=== PATIENT | female | born 1980 ===

== ENCOUNTER 2021-09-29 05:24 | Inpatient (IN) | payer OTHER, SELFPAY ==
--- NOTE | ~2021-09-29 | CT_ITS ---
EXAMINATION: CT ABDOMEN AND PELVIS WITH CONTRAST CLINICAL INFORMATION: Abdominal pain, rule out appendicitis. COMPARISON: None TECHNIQUE: Multidetector volumetric images were obtained from the superior aspect of the liver through the pubic symphysis following administration 85 mL of Omnipaque 350 intravenous contrast. Sagittal and coronal reformatted images were obtained on the technologist's workstation. Oral contrast: No This CT examination was performed using dose optimization techniques as appropriate, variously including the following: *Automated exposure control *Adjustment of mA and/or kV according to patient size (this includes techniques or standardized protocols for targeted exams where dose is matched to indication/reason for exam; i.e. extremities or head) *Use of iterative reconstruction technique DLP: 421 mGy-cm FINDINGS: LUNG BASES: The visualized lung bases are unremarkable. LIVER, GALLBLADDER, AND BILIARY TREE: Unremarkable. PANCREAS: Unremarkable. SPLEEN: Unremarkable. ADRENAL GLANDS: Unremarkable. KIDNEYS AND URETERS: The right kidney shows an interpolar cyst measuring 1.1 cm (image 35, series 3). Incidental persistent cortical lobulation. No nephrolithiasis or hydronephrosis. BLADDER: Unremarkable. GASTROINTESTINAL TRACT: The stomach, small bowel and appendix are unremarkable. The proximal colon is unremarkable. Mild mural thickening is seen in the sigmoid colon rectum without focal abnormality. ABDOMINAL WALL: No significant hernia is appreciated. LYMPH NODES: No lymphadenopathy. VASCULAR: Unremarkable. PELVIC VISCERA: Anteverted/anteflexed uterus with diminished attenuation and ill-defined margins in the inferior uterine body and cervix extending to the vaginal fornix. A tubular structure extends along the posterior margin of the uterus to the left ovary with mildly thickened wall measuring approximately 3.7 x 3.6 x 1.8 cm. The left ovary is enlarged with several low-attenuation components with thickened guerrero measuring approximately 4.7 x 3.6 x 2.9 cm (image 23, series 6; image 66, series 3). Similar findings are seen in the right ovary to a lesser extent. Mild surrounding infiltrative changes are seen. OSSEOUS STRUCTURES: L5-S1 is transitional with sacralization of L5 and rudimentary disc at L5-S1. Minimal grade 1 retrolisthesis of L4 over L5 is noted. CT/CT abdomen pelvis w con IMPRESSION: 1. Pelvic findings suggestive of left tubo-ovarian abscess. Similar findings are seen in the right ovary to a lesser extent. Additionally is decreased enhancement are ill-defined margins of the inferior uterine body/cervix/vaginal fornix suggestive of inflammation in this region as well. Malignancy would be less likely but cannot be excluded. The adjacent sigmoid colon and rectum show mild mural thickening which may be reactive. No diverticulosis or evidence for stress fistula formation. 2. Right renal cyst demonstrates benign features. This result was discussed with Dr. Nava at 11:05 AM on 09/29/2021 and it was ascertained that the content and urgency of the report was understood at the time of direct communication.
[2021-09-29 05:49] VITALS: BP 126/75; PULSE 99; RESP 16; TEMP 36.9; O2SAT 100; BMI 24.4
[2021-09-29 06:31] VITALS: BP 124/72; PULSE 94; RESP 18; O2SAT 99
--- NOTE | 2021-09-29 06:59 | ED_ITS ---
HPI - General Adult General Chief complaint: General Medical Stated complaint: lower back pain, migraine Time Seen by Provider: 09/29/21 06:41 Source: patient and family (, [place]) Mode of arrival: ambulatory Limitations: no limitations History of Present Illness HPI narrative: 41-year-old female who presents emergency department for evaluation of lower back pain and abdominal pain. The patient states that the pain started on Monday (4 days prior to evaluation). She states the pain came on gradually and got progressively worse. She states that since 03:00 hours she has been awake and unable to sleep secondary to the severity of the pain. She points to her lower abdomen when asked to localize pain. She points to her right lower quadrant states that it is worse in this area. She cannot describe the character of the pain, the pain is constant but waxes and wanes in intensity. The pain is currently 10/10. The pain is worse with movement and worse with breathing. She started her menses on Monday. She is and had 2 miscarriages. She had subjective fever and chills. She had nausea with no vomiting. She had several loose diarrheal stools. She has dysuria but no frequency or urgency. Patient states that she gets similar pain with her menses every month however states this pain is more severe than any of her previous menstrual cramps. She has been vaccinated for COVID-19 with 2 Moderna vaccinations. complaint: Abdominal pain Onset (ago): day(s) (4) Location: abdomen (Lower abdomen, increased right lower quadrant) Radiation: back Severity: severe Severity scale (1-10): 10 Quality: constant and other (Unable to describe character pain) Pain Consistency: constant (Waxes and wanes in intensity) Relieving factors: none Exacerbating factors: movement and other (Breathing) Associated symptoms: fever/chills and nausea/vomiting (Nausea without vomiting) Treatments prior to arrival: NSAID Related Data Allergies Allergy/AdvReac Type Severity Reaction Status Date / Time No Known Allergies Allergy Unverified 03/12/20 17:57 Review of Systems Review of Systems: Yes all other systems are reviewed and are negative [facility] Past Medical History [facility] Narrative: Past medical history: 2 spontaneous of abortions. Past surgical history: None. Social history: She is and her is here in the emergency department with her. She denies tobacco use. She occasionally drinks alcohol. She denies drug use. Social History Social History Alcohol intake: unknown Use of substances other than those prescribed or required for medical reasons: Unknown Advance Directives: No Advance Directives Information Provided: Yes Physical Exam ED Vital Signs: Vital Signs - 24 hr 09/29/21 05:49 09/29/21 06:31 09/29/21 08:50 Temperature 98.5 F Pulse Rate 99 94 86 Respiratory Rate 16 18 18 Blood Pressure 126/75 124/72 117/65 Pulse Oximetry 100 99 100 BMI result Body Mass Index 24.4 Const General: cooperative and no acute distress Orientation/consciousness: oriented to person and oriented to place Limitations: no limitations HENMT Head: Yes normal to inspection, Yes normocephalic and Yes atraumatic Ears: external ears normal General nose exam: Normal external nose present Face and sinus: Yes normal facial exam Mouth: Normal oral and palatal mucosa present Throat: Yes posterior oropharynx normal Eyes General: appearance normal, both eyes and all related structures Pupils: Equal, round and reactive pupils present Neck Neck: Yes normal visual inspection, Yes no lymphadenopathy, Yes trachea midline and Yes supple Chest Chest palpation & inspection: normal inspection of the chest and normal palpation of entire chest wall Resp Effort & Inspection: normal respiratory effort and able to speak in complete sentences Auscultation: clear to auscultation bilaterally Cardio Rate: regular rate Rhythm: regular rhythm Heart sounds: S1 normal heart sound present, S2 normal heart sound present and no murmurs GI Inspection: Yes normal to inspection Palpation (GI): Soft to palpation, Tenderness to palpation present (GI) in the LLQ (Moderate), in the RLQ (Severe) and suprapubicly (Moderate) and no guarding Auscultation: normal bowel sounds General: Yes no CVA tenderness Back/Spine/Pelvis Back: no CVA tenderness Skin General skin exam: no rashes or lesions noted Neuro General: oriented to person and oriented to place Cranial nerves: Yes CN's II-XII intact bilaterally and Yes Equal, round and reac tive pupils present Cognition (Neuro): normal cognition Motor exam (neuro): 5/5 motor strength present throughout Extrem General: Yes normal to inspection Psych Appearance: grossly normal Speech and movement: Normal speech and movement present Affect: normal affect Attitude: cooperative Thought process: Normal thought process present Thought content: Normal thought content present Course Course Course Narrative: 41-year-old female with no significant past medical or surgical history presents emergency department for evaluation of 4 days of lower abdominal pain worse since 03:00 hours this morning. Patient started her menses 3 days prior and states that she has had similar pain in the past but never this severe. Vital signs were normal. Examination of her abdomen revealed moderate left lower quadrant suprapubic tenderness with severe right lower quadrant tenderness. Differential includes but is not limited to UTI, pyelonephritis, ectopic , pancreatitis, appendicitis. I ordered a CBC, CMP, lipase, urine , urinalysis, CT scan of the abdomen pelvis with IV contrast. Patient's pain and nausea was treated with Toradol 15 mg IV and Zofran 4 mg IV. She was also ordered to get normal saline x1 L. 1146: Laboratory evaluation: WBC normal. H&H mild anemia 10 and 33. CMP normal. Lipase normal. Quantitative Beta-hCG negative. Urinalysis 3+ blood. Urine microscopic 10-14 RBCs, 1-4 WBCs, 2+ squamous cells. Radiology evaluation: CT scan of abdomen pelvis with IV contrast radiology reading is below IMPRESSION: 1. Pelvic findings suggestive of left tubo-ovarian abscess. Similar findings are seen in the right ovary to a lesser extent. Additionally is decreased enhancement are ill-defined margins of the inferior uterine body/cervix/vaginal fornix suggestive of inflammation in this region as well. Malignancy would be less likely but cannot be excluded. The adjacent sigmoid colon and rectum show mild mural thickening which may be reactive. No diverticulosis or evidence for stress fistula formation. 2. Right renal cyst demonstrates benign features. The patient's presentation is consistent with PID with possible right tubal ovarian abscess. I will do a pelvic exam on the patient I did order blood cultures . I will obtain gonorrhea, chlamydia, BV and Trichomonas samples. Patient had some improvement a IV Toradol but she still has pain. has persistent pain will be treated with morphine 4 mg IV. I also ordered ceftriaxone 1 g IV and Flagyl 500 mg IV. 1243: I did discuss the patient with the covering cherry dipper, Dr. Saunders. He states that the initial management is IV antibiotics and oral doxycycline. He recommended ceftriaxone 1 g IV Q 24 hours, Flagyl (metronidazole) 500 mg q.12 hours and doxycycline 100 mg orally q.12 hours. I will discuss admission with the covering hospitalist. 1249: I did discuss the patient's presentation with the covering hospitalist Dr. Jarrett and the patient will be admitted to the hospitalist service for further management. Medical Decision Making Lab Data Result diagrams: 09/29/21 07:29 09/29/21 07:29 Labs: Lab Results 09/29/21 09/29/21 09/29/21 Range/Units 07:29 07:29 07:41 WBC 9.4 (4.8-10.8) X10*3/uL RBC 3.72 L (4.20-5.50) X10*6/uL Hgb 10.8 L (12.0-16.0) g/dl Hct 33.0 L (37.0-47.0) % MCV 88.7 (80.0-98.0) fL MCH 29.0 (27.0-33.0) pg MCHC 32.7 (31.0-35.0) g/dl RDW 13.4 (11.0-16.0) % Plt Count 252 (160-400) X10*3/uL MPV 8.9 L (9.4-12.3) fL Immature Gran % (Auto) 0.4 (0.0-0.4) % Neut % (Auto) 82.4 H (45-73) % Lymph % (Auto) 9.4 L (20-40) % [place] % (Auto) 7.2 (2-11) % Eos % (Auto) 0.5 (0-4) % Baso % (Auto) 0.1 (0-2) % Lymph # (Auto) 0.9 L (1.2-4.9) X10*3/uL [place] # (Auto) 0.7 (0.1-1.2) X10*3/uL Eos # (Auto) 0.1 (0.0-0.4) X10*3/uL Baso # (Auto) 0.0 (0.0-0.2) X10*3/uL Abs Immat Gran (auto) 0.04 H (0.00-0.03) X10*3/uL Absolute Neuts (auto) 7.8 (2.0-8.3) x10*3/uL Absolute Nucleated RBC 0.000 (0.0-0.012) X10*3/uL Nucleated RBC % (auto) 0.0 (0.0-0.2) /100WBC Sodium 137 (135-145) mmol/L Potassium 4.3 (3.3-5.1) mmol/L Chloride 107 (96-108) mmol/L Carbon Dioxide 23 (22-29) mmol/L Anion Gap 11 L (12-20) BUN 14 (9-16) mg/dL Creatinine 0.72 (0.5-1.4) mg/dL Estim Creat Clear Calc 85.0 Estimated GFR > 60 Random Glucose 98 (60-115) mg/dL Calcium 8.7 (8.4-10.2) mg/dL Total Bilirubin 0.5 (0.0-1.0) mg/dL AST 12 (5-31) U/L ALT 13 (0-31) U/L Alkaline Phosphatase 59 (39-117) U/L Total Protein 7.0 (6.5-8.0) g/dL Albumin 4.0 (3.5-5.0) g/dL Lipase 32 (8-78) U/L Beta HCG, Quant < 2 mIU/mL Urine Color YELLOW Urine Appearance HAZY Urine pH 5.5 (5.0-8.0) Ur Specific [place] >= 1.030 H (1.005-1.025) Urine Protein NEG (NEG-TRACE) MG/DL Urine Glucose (UA) NEG (NEG) MG/DL Urine Ketones NEG (NEG) MG/DL Urine Blood 3+ H (NEG) Urine Nitrite NEG (NEG) Ur Leukocyte Esterase NEG (NEG) Urine RBC 10-14 H (0) /HPF Urine WBC 1-4 (0-4) /HPF Ur Squamous Epith Cells 2+ /LPF Urine Bacteria NONE /LPF Urine Mucus 1+ /LPF Discharge Plan Discharge Patient Disposition: Admitted As Inpatient
[2021-09-29 07:36] LABS: MANUAL DIFF FLAG NO
[2021-09-29 07:37] LABS: Basophils Percent Auto 0.1 % (0-2); Eosinophils Absolute Auto 0.1 X10*3/uL (0.0-0.4); Eosinophils Percent Auto 0.5 % (0-4); Hemoglobin 10.8 g/dl (12.0-16.0); Imm Gran Abs Auto 0.04 X10*3/uL (0.00-0.03); Imm Gran Pct Auto 0.4 % (0.0-0.4); Lymphocytes Absolute Auto 0.9 X10*3/uL (1.2-4.9); Lymphocytes Percent Auto 9.4 % (20-40); Mean Corpuscular HGB Conc 32.7 g/dl (31.0-35.0); Mean Corpuscular Volume 88.7 fL (80.0-98.0); Mean Platelet Volume 8.9 fL (9.4-12.3); Monocytes Absolute Auto 0.7 X10*3/uL (0.1-1.2); Monocytes Percent Auto 7.2 % (2-11); Neutrophils Absolute Auto 7.8 x10*3/uL (2.0-8.3); Neutrophils Percent Auto 82.4 % (45-73); Platelet Count 252 X10*3/uL (160-400); Red Blood Count 3.72 X10*6/uL (4.20-5.50); Red Cell Distribution Width 13.4 % (11.0-16.0); White Blood Count 9.4 X10*3/uL (4.8-10.8)
[2021-09-29 07:48] LABS: Appearance Urine HAZY; Color Urine YELLOW; Glucose Urine UA NEG (NEG); Leukocyte Esterase Urine NEG (NEG); Nitrite Urine NEG (NEG); PH 5.5 (5.0-8.0); Specific Gravity - Urine >= 1.030 (1.005-1.025); UACC Culture Trigger NO; Urine Blood 3+ (NEG); Urine Ketones NEG (NEG); Urine Protein NEG (NEG-TRACE)
[2021-09-29] MEDS: ondansetron HCL 4 MG/2 ML VIAL IVPUSH (07:52)
[2021-09-29] MEDS: 0.9 % Sodium Chloride 1,000 ML 999 ML IV (07:52)
[2021-09-29] MEDS: Ketorolac Tromethamine 15 MG/ML VIAL IVPUSH (07:52)
[2021-09-29 07:55] LABS: Mucus Urine 1+ /LPF; Squamous Epithelial Cell Urine 2+ /LPF
[2021-09-29 07:55] LABS: Alanine Aminotransferase 13 U/L (0-31); Alkaline Phosphatase 59 U/L (39-117); Anion Gap 11 (12-20); Aspartate Amino Transferase 12 U/L (5-31); Bilirubin Total 0.5 mg/dL (0.0-1.0); Blood Urea Nitrogen 14 mg/dL (9-16); Calcium 8.7 mg/dL (8.4-10.2); Carbon Dioxide 23 mmol/L (22-29); Chloride 107 mmol/L (96-108); Estimated Glomerular Filt Rate > 60; Glucose Random 98 mg/dL (60-115); Lipase 32 U/L (8-78); Potassium 4.3 mmol/L (3.3-5.1); Sodium 137 mmol/L (135-145)
[2021-09-29 08:50] VITALS: BP 117/65; PULSE 86; RESP 18; O2SAT 100
[2021-09-29 09:11] LABS: HCG Quantitative < 2 mIU/mL
[2021-09-29] MEDS: iohexoL 350 MG/ML 100 ML INFUS..BTL IV (10:00)
[2021-09-29] MEDS: Morphine Sulfate 4 MG/ML CARTRIDGE IVPUSH (12:05)
[2021-09-29] MEDS: cefTRIAXone sodium 1 GM in 0.9 % Sodium Chloride 50 ML IV ×2 (12:20→14:44)
--- NOTE | 2021-09-29 12:35 | PM.GYNCN ---
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 - Review of Systems Review of Systems ROS Unobtainable: All systems reviewed & are unremarkable except as noted in HPI and below Cardiovascular: Denies Palpatations, Loss of consciousness or Chest pain Respiratory: Denies Cough, Wheezing or Shortness of breath Musculoskeletal: Denies Low back pain Gastrointestinal: Denies Heartburn, Constipation, Diarrhea, Nausea or Vomiting Genitourinary: Denies Pain with urination, Burning with urination or Urinary frequency Neurological: Denies Migranes Psychological: Denies Depression OB PMFSH Social History Social History Alcohol intake: unknown Use of substances other than those prescribed or required for medical reasons: Unknown Advance Directives: No Advance Directives Information Provided: Yes Meds Allergies Allergy/AdvReac Type Severity Reaction Status Date / Time No Known Allergies Allergy Unverified 03/12/20 17:57 Active Medications: Current Medications Metronidazole (Flagyl) 500 mg in 100 mls @ 100 mls/hr IV ONCE ONE Stop: 09/29/21 12:42 Home Medications Medication Instructions Recorded Confirmed Last Taken Type No Known Home Meds 09/29/21 09/29/21 Unknown History 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 Physical Exam Vitals Vital signs: Temp Pulse Resp BP Pulse Ox 98.5 F 86 18 117/65 100 09/29/21 05:49 09/29/21 08:50 09/29/21 08:50 09/29/21 08:50 09/29/21 08:50 BMI result Body Mass Index 24.4 Constitutional General Appearance: Healthy appearing, Well-nourished and Well-developed Psychiatric Mood and Affect: active and alert, normal mood and normal affect Skin Appearance: No rashes and No lesions Lungs Respiratory Effort: No intercostal retractions Auscultation: Clear to auscultation Cardiovascular Auscultation: RRR Abdomen Auscultation/Inspection/Palpation: Normal bowel sounds, Non-distended and Other (Bilateral lower abdominal tenderness, no guarding or rebound) Female Genitalia (Pelvic) Vagina: Nontender Cervix: Cervical motion tenderness Uterus: Tender Adnexa/Parametria: Adnexal Tenderness: Bilateral and Adnexal Mass: Bilateral 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 - Results Labs CBC & Chem 7: 09/29/21 07:29 09/29/21 07:29 Labs: Short CBC 09/29/21 Range/Units 07:29 WBC 9.4 (4.8-10.8) X10*3/uL Hgb 10.8 L (12.0-16.0) g/dl Hct 33.0 L (37.0-47.0) % Plt Count 252 (160-400) X10*3/uL BMP 09/29/21 07:29 Sodium 137 Potassium 4.3 Chloride 107 Carbon Dioxide 23 BUN 14 Creatinine 0.72 Calcium 8.7 Liver Function 09/29/21 Range/Units 07:29 Total Bilirubin 0.5 (0.0-1.0) mg/dL AST 12 (5-31) U/L ALT 13 (0-31) U/L Alkaline Phosphatase 59 (39-117) U/L Albumin 4.0 (3.5-5.0) g/dL Urine 09/29/21 Range/Units 07:41 Urine Color YELLOW Urine Appearance HAZY Urine pH 5.5 (5.0-8.0) Ur Specific [place] >= 1.030 H (1.005-1.025) Urine Protein NEG (NEG-TRACE) MG/DL Urine Glucose (UA) NEG (NEG) MG/DL Imaging CT scan - pelvis: Radiologist's impression: ITS Impressions Abdomen/Pelvis CT 09/29/21 09:58 IMPRESSION: 1. Pelvic findings suggestive of left tubo-ovarian abscess. Similar findings are seen in the right ovary to a lesser extent. Additionally is decreased enhancement are ill-defined margins of the inferior uterine body/cervix/vaginal fornix suggestive of inflammation in this region as well. Malignancy would be less likely but cannot be excluded. The adjacent sigmoid colon and rectum show mild mural thickening which may be reactive. No diverticulosis or evidence for stress fistula formation. 2. Right renal cyst demonstrates benign features. This result was discussed with Dr. Nava at 11:05 AM on 09/29/2021 and it was ascertained that the content and urgency of the report was understood at the time of direct communication. Assessment and Plan (1) Tubo-ovarian abscess: Status: Acute GC chlamydia, BV panel and Trichomonas taken. Recommend admission for IV antibiotics with Ceftriaxone 1 g Q 24, doxycycline 100 mg p.o. or IV q.12, metronidazole 500 mg IV or p.o. q.12 till clinical improvement for 48-72 hours, then discharge home on doxycycline 100 mg p.o. b.i.d. with Flagyl 500 mg p.o. b.i.d. for a total of 14 days, to be followed up as an outpatient within 2 weeks. In the event the patient does not progress or develop any of the following: Suspected sepsis , enlarging pelvic mass, new onset fever, persistent or worsening abdomino/pelvic tenderness after 48-72 hours of treatment with IV antibiotics, the patient might need minimally invasive abscess drainage through interventional radiology or surgical intervention. GC/chlamydia/Trichomonas need to be checked and the patient is to be treaterd accordingly if positive
[2021-09-29] MEDS: metroNIDAZOLE/NS 500 MG/100 ML PIGGYBACK 100 MG IV (12:39)
[2021-09-29 13:53] VITALS: BP 127/82; PULSE 98; RESP 18; O2SAT 100
[2021-09-29 14:16] LABS: COVID-19 Test Negative (Negative); IDNOW Serial# 16C4AD1C
[2021-09-29 14:18] LABS: CT PCR NOT DETECTED (Not Detect.); NG PCR NOT DETECTED (Not Detect.)
[2021-09-29 14:27] LABS: IDNOW Serial# 08D9AD1C; Influenza A Negative (Negative); Influenza B2 Negative (Negative)
[2021-09-29 15:04] VITALS: BP 131/87; PULSE 93; RESP 20; O2SAT 100
--- NOTE | 2021-09-29 16:53 | P.HPHOSP_ITS ---
History of Present Illness Date of Service: 09/29/21 Attending physician on admission: Kat Jarrett Chief Complaint: abd pain 41-year-old female who presents emergency department for evaluation of lower back pain and abdominal pain. pain started on Monday (4 days prior to evaluation) right side >left lower abd , gradually and got progressively worse, 10/10 yesterday and today came to the hospital.? She points to her lower abdomen when asked to localize pain.? She points to her right lower quadrant states that it is worse in this area.? She cannot describe the character of the pain, the pain is constant but waxes and wanes in intensity.? The pain is currently 10/10.? The pain is worse with movement and worse with breathing.? She started her menses on Monday.? She is and had 2 miscarriages.? She had subjective fever and chills.? She had nausea with no vomiting.? She had several loose diarrheal stools.? She has dysuria but no frequency or urgency. Lab imaging reviewed: No leukocytosis Mild normochromic anemia BMP seems fine and liver function test also fine. Ct abd: CT/CT abdomen pelvis w con IMPRESSION: 1. Pelvic findings suggestive of left tubo-ovarian abscess. Similar findings are seen in the right ovary to a lesser extent. Additionally is decreased enhancement are ill-defined margins of the inferior uterine body/cervix/vaginal fornix suggestive of inflammation in this region as well. Malignancy would be less likely but cannot be excluded. The adjacent sigmoid colon and rectum show mild mural thickening which may be reactive. No diverticulosis or evidence for stress fistula formation. 2. Right renal cyst demonstrates benign features. ? Review of Systems Review of Systems: Denies any new complaint of chest pain or shortness of breath or vomiting Denies any cough Denies any weakness or numbness. Subjective fevers and chills. Has nausea. IP PMF Pertinent family history: No family history of high blood pressure or any boilermaker disease Social History Alcohol intake: unknown Use of substances other than those prescribed or required for medical reasons: Unknown Advance Directives: No Advance Directives Information Provided: Yes Meds Allergies Allergy/AdvReac Type Severity Reaction Status Date / Time No Known Allergies Allergy Unverified 03/12/20 17:57 Active Medications: Current Medications Acetaminophen (Acetaminophen 325 Mg Tablet) 650 mg PO Q6H [facility] Last Admin: 09/29/21 16:17 Dose: Not Given Documented by: Enoxaparin Sodium (Enoxaparin Sodium 40 Mg/0.4 Ml Syringe) 40 mg SUBCUT Q24H [facility] Metronidazole (Flagyl) 500 mg in 100 mls @ 100 mls/hr IV Q12H [facility] Doxycycline Hyclate 100 mg/ (Sodium Chloride) 250 mls @ 166.67 mls/hr IV Q12H [facility] Ceftriaxone Sodium 1 gm/ (Sodium Chloride) 50 mls @ 100 mls/hr IV Q24H [facility] Morphine Sulfate (Morphine Sulfate 2 Mg/Ml Cartridge) 2 mg IVPUSH Q4H PRN; Protocol PRN Reason: Pain, Moderate (Pain Scale 4-6 Ondansetron HCl (Ondansetron Hcl 4 Mg/2 Ml Vial) 4 mg IVPUSH Q4H PRN PRN Reason: nausea Pharmacy Consult (Consult Rx Perform Med Rec) 1 each MISCELLANE ONCE PRN PRN Reason: Consult order Sodium Chloride (0.9 % Sodium Chloride Flush 3 Ml Syringe) 3 ml IVFLUSH QSHIFT [facility] Home Medications Medication Instructions Recorded Confirmed Last Taken Type No Known Home Meds 09/29/21 09/29/21 Unknown History Physical Exam Vital Signs and Narrative: Vital Signs: Last Vital Signs Temp 98.5 F 09/29/21 05:49 Pulse 93 09/29/21 15:04 Resp 20 09/29/21 15:04 BP 131/87 09/29/21 15:04 Pulse Ox 100 09/29/21 15:04 BMI result Body Mass Index 24.4 Appearance: Alert.? Oriented X3.? not in distress.? Eyes: Pupils equal, round and reactive to light.? Sclera nonicteric.? ENT: Pharynx normal.? Moist mucous membranes. cvs: rrr, [id number] , no murmur res: clear to auscultation ,no rhonchii or wheezing abd: no rebound or guarding , right lower abdominal pain more than left, bs present. ext pulses present , no cyanosis ,Gait well balanced well coordinated. neuro: axo3 , nonfocal. Results Labs CBC and Chem 7: 09/29/21 07:29 09/29/21 07:29 Labs: Laboratory Results - last 24 hr 09/29/21 09/29/21 09/29/21 07:29 07:29 07:41 MCV 88.7 MCH 29.0 MCHC 32.7 RDW 13.4 Plt Count 252 MPV 8.9 L Immature Gran % (Auto) 0.4 Neut % (Auto) 82.4 H Lymph % (Auto) 9.4 L [place] % (Auto) 7.2 Eos % (Auto) 0.5 Baso % (Auto) 0.1 Lymph # (Auto) 0.9 L [place] # (Auto) 0.7 Eos # (Auto) 0.1 Baso # (Auto) 0.0 Abs Immat Gran (auto) 0.04 H Absolute Neuts (auto) 7.8 Absolute Nucleated RBC 0.000 Nucleated RBC % (auto) 0.0 Anion Gap 11 L Estim Creat Clear Calc 85.0 Estimated GFR > 60 Random Glucose 98 Calcium 8.7 Total Bilirubin 0.5 AST 12 ALT 13 Alkaline Phosphatase 59 Total Protein 7.0 Albumin 4.0 Lipase 32 Beta HCG, Quant < 2 Urine Color YELLOW Urine Appearance HAZY Urine pH 5.5 Ur Specific [place] >= 1.030 H Urine Protein NEG Urine Glucose (UA) NEG Urine Ketones NEG Urine Blood 3+ H Urine Nitrite NEG Ur Leukocyte Esterase NEG Urine RBC 10-14 H Urine WBC 1-4 Ur Squamous Epith Cells 2+ Urine Bacteria NONE Urine Mucus 1+ Chlam trachomat DNA PCR COVID-19 (ALEJANDRA) COVID-19 Clin Com Influenza Type A (RAMESH) Influenza Type B (RAMESH) Influenza A & B Note N.gonorrhoeae DNA (PCR) 09/29/21 09/29/21 09/29/21 12:29 13:58 13:58 MCV MCH MCHC RDW Plt Count MPV Immature Gran % (Auto) Neut % (Auto) Lymph % (Auto) [place] % (Auto) Eos % (Auto) Baso % (Auto) Lymph # (Auto) [place] # (Auto) Eos # (Auto) Baso # (Auto) Abs Immat Gran (auto) Absolute Neuts (auto) Absolute Nucleated RBC Nucleated RBC % (auto) Anion Gap Estim Creat Clear Calc Estimated GFR Random Glucose Calcium Total Bilirubin AST ALT Alkaline Phosphatase Total Protein Albumin Lipase Beta HCG, Quant Urine Color Urine Appearance Urine pH Ur Specific [place] Urine Protein Urine Glucose (UA) Urine Ketones Urine Blood Urine Nitrite Ur Leukocyte Esterase Urine RBC Urine WBC Ur Squamous Epith Cells Urine Bacteria Urine Mucus Chlam trachomat DNA PCR NOT DETECTED COVID-19 (ALEJANDRA) Negative COVID-19 Clin Com See Note Influenza Type A (RAMESH) Negative Influenza Type B (RAMESH) Negative Influenza A & B Note See Note N.gonorrhoeae DNA (PCR) NOT DETECTED Imaging Radiologist's Impressions: Impressions Abdomen/Pelvis CT 09/29/21 09:58 IMPRESSION: 1. Pelvic findings suggestive of left tubo-ovarian abscess. Similar findings are seen in the right ovary to a lesser extent. Additionally is decreased enhancement are ill-defined margins of the inferior uterine body/cervix/vaginal fornix suggestive of inflammation in this region as well. Malignancy would be less likely but cannot be excluded. The adjacent sigmoid colon and rectum show mild mural thickening which may be reactive. No diverticulosis or evidence for stress fistula formation. 2. Right renal cyst demonstrates benign features. This result was discussed with Dr. Naav at 11:05 AM on 09/29/2021 and it was ascertained that the content and urgency of the report was understood at the time of direct communication. Assessment and Plan (1) Tubo-ovarian abscess: Status: Acute (2) Acute pelvic inflammatory disease: Status: Acute (3) Left tubo-ovarian abscess: Status: Acute (4) Right tubo-ovarian abscess: Status: Acute Plan 41-year-old female admitted to the hospital because of possible bilateral ovarian abscess. 1. Bilateral ovarian abscesses possible: Started on IV ceftriaxone, Flagyl, doxycycline Tylenol p.r.n. for fever Currently patient is not septic Skein Yarn Drier saw the patient and recommended above antibiotics Will add id evaluation 2. Intractable abdominal pain: Related to bilateral abdominal abscesses. Started on morphine, p.r.n. Tylenol Zofran for nausea 3. Diarrhea: Patient denies any new episode of diarrhea currently if patient has new episode of diarrhea will send stool studies. DVT prophylaxis with subQ Lovenox Above management discussed the patient in detail length she understand and in agreement with the above plan, time spent 70 minute, full code. Considering the need of IV antibiotic and bilateral ovarian abscesses may benefit from 2 midnight stays. Quality Stroke Does the patient have a stroke diagnosis?: No VTE Prior VTE?: No VTE Risk Level:: Medical - moderate - high VTE Device Contraindication: N/A - Device Ordered VTE Drug Contraindication: N/A - Med Ordered
[2021-09-29 17:57] VITALS: BP 129/84; PULSE 108; RESP 18; TEMP 36.9; O2SAT 100
[2021-09-29] MEDS: Enoxaparin Sodium 40 MG/0.4 ML SYRINGE SUBCUT (17:58)
[2021-09-29] MEDS: 0.9 % Sodium Chloride Flush 3 ML SYRINGE IVFLUSH (17:59)
[2021-09-29] MEDS: Acetaminophen 325 MG TABLET 650 MG PO (21:19)
[2021-09-30] VITALS (7 sets, daily range): BP systolic 103–133; BP diastolic 58–82; PULSE 80–104; RESP 17–20; TEMP 36.2–36.7; O2SAT 99–100
[2021-09-30] MEDS: Doxycycline Hyclate 100 MG in 0.9 % Sodium Chloride 250 ML 166.67 MG IV ×3 (01:05→23:51)
[2021-09-30] MEDS: 0.9 % Sodium Chloride Flush 3 ML SYRINGE IVFLUSH ×4 (01:08→23:54)
[2021-09-30] MEDS: Acetaminophen 325 MG TABLET 650 MG PO ×4 (02:41→19:14)
[2021-09-30 06:05] LABS: Hematocrit 31.4 % (37.0-47.0); Hemoglobin 10.3 g/dl (12.0-16.0); Mean Corpuscular HGB Conc 32.8 g/dl (31.0-35.0); Mean Corpuscular Hemoglobin 29.1 pg (27.0-33.0); Mean Corpuscular Volume 88.7 fL (80.0-98.0); Platelet Count 260 X10*3/uL (160-400); Red Blood Count 3.54 X10*6/uL (4.20-5.50); Red Cell Distribution Width 13.1 % (11.0-16.0); White Blood Count 6.3 X10*3/uL (4.8-10.8)
[2021-09-30 06:32] LABS: Anion Gap 11 (12-20); Blood Urea Nitrogen 15 mg/dL (9-16); Calcium 8.6 mg/dL (8.4-10.2); Carbon Dioxide 24 mmol/L (22-29); Chloride 108 mmol/L (96-108); Creatinine Clr Calc Pharmacy 81.6; Estimated Glomerular Filt Rate > 60; Glucose Random 92 mg/dL (60-115); Potassium 4.5 mmol/L (3.3-5.1); Sodium 138 mmol/L (135-145)
--- NOTE | 2021-09-30 12:16 | MHC.CM.PN ---
Met with patient and shop tech in regards to discharge planning. Patient lives with her , ambulates independently and had no services prior to coming to the hospital. No services anticipated to be needed at d/c because patient is not homebound. PCP verified as Dr Rowland. Patient received 2 Moderna vaccines but no boosted. Patient denies having a HCP. Information provided. Patient not interested in completing one at this time. Patient's will transport patient home when medically stable. Continue to monitor for d/c needs.
--- NOTE | 2021-09-30 12:30 | W.PM.IDCN ---
History of Present Illness Data of Consult Service Date: 09/30/21 Requesting physician: Kat Jarrett Primary Care Provider: Unknown Physician HPI Reason for consult: left tuboovarian abscess She presents with lower pelvic and LS spine pain,6/10 over last four days worse. She has left tuboovarian abscess seen. Cultures are unremarkable so far and no trichomonas seen. Review of Systems Review of Systems: Yes all other systems are reviewed and are negative [facility] Social History Social History Household Members: Spouse Housing: Apartment Alcohol intake: unknown Patient Tobacco Use Status: Never used Tobacco service: No Current occupational status: employed Meds Allergies Allergy/AdvReac Type Severity Reaction Status Date / Time No Known Allergies Allergy Verified 11/01/21 12:30 Active Medications: Current Medications Acetaminophen (Acetaminophen 325 Mg Tablet) 650 mg PO Q6H [facility] Last Admin: 09/30/21 09:06 Dose: 650 mg Documented by: Enoxaparin Sodium (Enoxaparin Sodium 40 Mg/0.4 Ml Syringe) 40 mg SUBCUT Q24H [facility] Last Admin: 09/29/21 17:58 Dose: 40 mg Documented by: Metronidazole (Flagyl) 500 mg in 100 mls @ 100 mls/hr IV Q12H [facility] Doxycycline Hyclate 100 mg/ (Sodium Chloride) 250 mls @ 166.67 mls/hr IV Q12H [facility] Last Admin: 09/30/21 11:45 Dose: 166.67 mls/hr Documented by: Ceftriaxone Sodium 1 gm/ (Sodium Chloride) 50 mls @ 100 mls/hr IV Q24H [facility] Morphine Sulfate (Morphine Sulfate 2 Mg/Ml Cartridge) 2 mg IVPUSH Q4H PRN; Protocol PRN Reason: Pain, Moderate (Pain Scale 4-6 Ondansetron HCl (Ondansetron Hcl 4 Mg/2 Ml Vial) 4 mg IVPUSH Q4H PRN PRN Reason: nausea Pharmacy Consult (Consult Rx Perform Med Rec) 1 each MISCELLANE ONCE PRN PRN Reason: Consult order Sodium Chloride (0.9 % Sodium Chloride Flush 3 Ml Syringe) 3 ml IVFLUSH QSHIFT [facility] Last Admin: 09/30/21 09:07 Dose: 3 ml Documented by: Physical Exam Vital Signs: Vital Signs: Last Vital Signs Temp 97.8 F 09/30/21 04:00 Pulse 92 09/30/21 12:08 Resp 20 09/30/21 12:08 BP 133/79 09/30/21 12:08 Pulse Ox 100 09/30/21 07:58 BMI result Body Mass Index 24.4 Const: General: cooperative HEENT: Head: Yes normal to inspection Mouth: Normal oral and palatal mucosa present Resp: Effort & Inspection: normal respiratory effort Cardio: Rate: regular rate Rhythm: regular rhythm GI: Palpation (GI): Soft to palpation and nontender Skin: General skin exam: no rashes or lesions noted Results Labs CBC & Chem 7: 09/30/21 05:41 09/30/21 05:41 Labs: Short CBC 09/30/21 Range/Units 05:41 WBC 6.3 (4.8-10.8) X10*3/uL Hgb 10.3 L (12.0-16.0) g/dl Hct 31.4 L (37.0-47.0) % Plt Count 260 (160-400) X10*3/uL BMP 09/30/21 05:41 Sodium 138 Potassium 4.5 Chloride 108 Carbon Dioxide 24 BUN 15 Creatinine 0.75 Calcium 8.6 Microbiology Microbiology Results: Microbiology 09/29/21 07:41 Blood - Venous Blood Culture - Preliminary No growth after 24 hours. 09/29/21 07:29 Blood - Venous Blood Culture - Preliminary No growth after 24 hours. 09/29/21 12:29 Vaginal Trichomonas Preparation - Final Assessment and Plan (1) Tubo-ovarian abscess: Status: Acute She appears nontoxic. There is concern over tuboovarian abscess such as gram negative,anerobes. There is less likely gram positive organisms. (2) Acute pelvic inflammatory disease: Status: Acute Plan Ceftriaxone,Doxycycline and flagyl total 14 d,finish po Check HIV ,RPR and Hepatitis C. Follow Gynecology ?drainable if pain persists
[2021-09-30 13:10] LABS: BV Int Neg Control Negative (Negative); BV Int Pos Control Positive (Positive)
[2021-09-30] MEDS: cefTRIAXone sodium 1 GM in 0.9 % Sodium Chloride 50 ML IV (13:30)
[2021-09-30] MEDS: Enoxaparin Sodium 40 MG/0.4 ML SYRINGE SUBCUT (15:50)
[2021-09-30] MEDS: metroNIDAZOLE/NS 500 MG/100 ML PIGGYBACK 100 MG IV (22:42)
[2021-10-01 04:00] VITALS: BP 122/76; PULSE 82; RESP 18; TEMP 36.6; O2SAT 99
[2021-10-01 08:00] VITALS: BP 115/73; PULSE 90; RESP 17; TEMP 36.1; O2SAT 97
[2021-10-01] MEDS: 0.9 % Sodium Chloride Flush 3 ML SYRINGE IVFLUSH (08:17)
[2021-10-01] MEDS: Acetaminophen 325 MG TABLET 650 MG PO ×2 (08:17→15:14)
[2021-10-01 11:18] VITALS: BP 133/79; PULSE 109; RESP 20; TEMP 36.2; O2SAT 98
[2021-10-01] MEDS: metroNIDAZOLE/NS 500 MG/100 ML PIGGYBACK 100 MG IV (11:19)
--- NOTE | 2021-10-01 11:54 | P.DS_ITS ---
DS: Providers Provider Date of Service: 10/01/21 Date of admission: 09/29/21 13:29 Primary care physician: Tomasz Rowland MD Consults: 09/29/21 18:30 Consult to Infectious Diseases Routine Consulting Provider: Salena Chan Reason for consultation: PID, tuboovarian abcess Has provider been notified: No DS: Diagnosis Discharge Diagnosis (1) Tubo-ovarian abscess: Status: Acute (2) Acute pelvic inflammatory disease: Status: Acute DS: Summary Hospital Course Hospital Course: 41-year-old female who presents emergency department for evaluation of lower back pain and abdominal pain. ?pain started on Monday (4 days prior to evaluation) right side >left lower abd , gradually and got progressively worse, 10/10 yesterday and today came to the hospital.? She points to her lower abdomen when asked to localize pain.? She points to her right lower quadrant states that it is worse in this area.? She cannot describe the character of the pain, the pain is constant but waxes and wanes in intensity.? The pain is currently 10/10.? The pain is worse with movement and worse with breathing.? She started her menses on Monday.? She is and had 2 miscarriages.? She had subjective fever and chills.? She had nausea with no vomiting.? She had several loose diarrheal stools.? She has dysuria but no frequency or urgency. Hospital course: Patient was admitted for tubo-ovarian abscess: Started on IV antibiotics and pain management: Patient seems to be improved with 48 hour IV antibiotics, subsequently switched to p.o. antibiotics. Discussed with poultry barn manager and ID: Complete antibiotic course, also check HIV, hep C, RPR out patiently with Schedule Announcer. Follow-up with poultry barn manager in 2 weeks. Above management discussed with the patient in detail length she understand and in agreement with the above plan, time spent 50 minutes and 50% time spent on counseling. Significant findings: As above. Procedures performed: None. Treatment and response: As above. Complications: None. Time Spent with Patient Time attestation: Total time spent providing and/or coordinating discharge services: Discharge coordination time: Greater than 30 minutes Quality: Safe Use of Opioids Does Pt have an Active Cancer Diagnosis on the Problem List?: No Quality: Stroke Does the patient have a stroke diagnosis?: No Physical Exam Vital Signs: Vital Signs: Last Vital Signs Temp 97.2 F 10/01/21 11:18 Pulse 109 H 10/01/21 11:18 Resp 20 10/01/21 11:18 BP 133/79 10/01/21 11:18 Pulse Ox 98 10/01/21 11:18 BMI result Body Mass Index 24.4 Appearance: Alert.? Oriented X3.? not in distress.? Eyes: Pupils equal, round and reactive to light.? Sclera nonicteric.? ENT: Pharynx normal.? Moist mucous membranes. cvs: rrr, [id number] , no murmur res: clear to auscultation ,no rhonchii or wheezing abd: no rebound or guarding ,nt, bs present. ext pulses present , no cyanosis . neuro: axo3 , nonfocal. DS: Data Data Completed and Pending Labs on day of discharge: Laboratory Results - last 24 hr 09/29/21 10:28 Emeli species DNA Negative Gardnerella DNA Probe Positive A Trichomonas DNA Probe Negative Preliminary micro results at discharge 09/29/21 07:41 Blood Culture - Preliminary Blood - Venous No growth after 48 hours. 09/29/21 07:29 Blood Culture - Preliminary Blood - Venous No growth after 48 hours. 09/29/21 12:15 Blood Culture - Preliminary Blood - Venous No growth after 24 hours. 09/29/21 12:07 Blood Culture - Preliminary Blood - Venous No growth after 24 hours. Additional Comments Additional comments: CT/CT abdomen pelvis w con IMPRESSION: 1. Pelvic findings suggestive of left tubo-ovarian abscess. Similar findings are seen in the right ovary to a lesser extent. Additionally is decreased enhancement are ill-defined margins of the inferior uterine body/cervix/vaginal fornix suggestive of inflammation in this region as well. Malignancy would be less likely but cannot be excluded. The adjacent sigmoid colon and rectum show mild mural thickening which may be reactive. No diverticulosis or evidence for stress fistula formation. 2. Right renal cyst demonstrates benign features. Discharge Plan Discharge Patient Disposition: Home, Self-Care Discharge Diagnosis: PID, tubo-ovarian abscess. Referrals: Tomasz Rowland MD [Primary Care Provider] - 1 Week Remington Saunders MD [Physician] - 2 Weeks (follow up outpatiently) Discharge Medications: New doxycycline hyclate 100 mg capsule 100 mg PO BID Qty: 28 0RF metronidazole 500 mg tablet 500 mg PO BID Qty: 28 0RF Discharge Orders: Discharge Order (Routine); Ordered 10/01/21 Ordered By: Kat Jarrett Diet: advance to usual diet Activity on Discharge: As tolerated Stand Alone Forms: Patient Portal Discharge page Care Plan Goals: Patient was admitted for tubo-ovarian abscess: Started on IV antibiotics and pain management: Patient seems to be improved with 48 hour IV antibiotics, subsequently switched to p.o. antibiotics. Discussed with poultry barn manager and ID: Complete antibiotic course, also check HIV, hep C, RPR out patiently with Schedule Announcer. Discussed with the patient-if started to have abdominal pain or fever or increased abdominal swelling or any new symptoms come to the nearest emergency room. Above management discussed with the patient in detail and she understand and in agreement with the above plan. Follow-up with poultry barn manager in 2 weeks. Health Concerns: as above. Plan of Treatment: As above. Assessment: As above.
--- NOTE | 2021-10-01 12:01 | MHC.CM.PN ---
nurse vocational case manager note electronic medical record reviewed along with case discussed with hospitlait charter and tour bus driver and id physicians following. per hospitalsit patient may possibnly be discharged today per id physician recomendations discharge plan home no services pcp dr juancarlos hodgson patient o call for follow up post hospital dischagre transportation
[2021-10-01] MEDS: Doxycycline Hyclate 100 MG in 0.9 % Sodium Chloride 250 ML 166.67 MG IV (12:41)
[2021-10-01] MEDS: cefTRIAXone sodium 1 GM in 0.9 % Sodium Chloride 50 ML IV (15:15)
== END 2021-10-01 17:00 | disposition home or self-care (01) | DRG 531 ==
LOC: HO.ED 12:52 → HO.EDOVER 13:38 → HO.S3 09-30 13:47
PROVIDERS: Admitting Provider Internal Medicine; Emergency Provider Emergency Medicine Emergency Medical Services; PCP Internal Medicine; Visit Provider Internal Medicine
DX: N70.93 Salpingitis and oophoritis, unspecified (principal); D64.9 Anemia, unspecified; Z20.822 Contact with and (suspected) exposure to COVID-19; N73.9 Female pelvic inflammatory disease, unspecified
CPT/HCPCS: 36415; 74177; 80048; 80053; 81001; 83690; 84702; 85025; 85027; 87040; 87480; 87491; 87502; 87510; 87591; 87635; 87660; 96361; 96365; 96366; 96375; 99218; 99285; J0696; J1650; J1885; J2270; J2405; Q9967

== ENCOUNTER 2021-11-01 12:20 | Outpatient (REF) | payer OTHER, SELFPAY ==
[2021-11-01 14:46] LABS: Syphilis Screen Nonreactive (Nonreactive)
[2021-11-02 04:39] LABS: HBsAGNum1 0.41 S/CO (0.00-0.99); HIV AB/AG Nonreactive (Nonreactive); HIV Num 1 0.06 S/CO (0.00-0.99); Hepatitis B Surface Antigen Negative (Negative); ~HepC Num1 0.13 S/CO (0.00-0.79); ~Hepatitis C Antibody Nonreactive (Nonreactive)
[2021-11-02 11:14] LABS: BV Int Neg Control Negative (Negative); BV Int Pos Control Positive (Positive)
== END 2021-11-01 12:21 | disposition home or self-care (01) ==
LOC: HO.LAB 12:20
PROVIDERS: Visit Provider Obstetrics & Gynecology
DX: Z11.3 Encounter for screening for infections with a predominantly sexual mode of transmission (principal); Z11.4 Encounter for screening for human immunodeficiency virus [HIV]; N70.93 Salpingitis and oophoritis, unspecified
CPT/HCPCS: 36415; 86780; 86803; 87340; 87389; 87480; 87510; 87660; 99212

== ENCOUNTER 2022-02-02 13:59 | Outpatient (REF) | payer OTHER, SELFPAY ==
[2022-02-02 15:26] LABS: Syphilis Screen Nonreactive (Nonreactive)
[2022-02-02 16:45] LABS: CT PCR NOT DETECTED (Not Detect.); NG PCR NOT DETECTED (Not Detect.)
[2022-02-03 08:00] LABS: HBsAGNum1 0.18 S/CO (0.00-0.99); HIV AB/AG Nonreactive (Nonreactive); HIV Num 1 0.09 S/CO (0.00-0.99); Hepatitis B Surface Antigen Negative (Negative); ~HepC Num1 0.09 S/CO (0.00-0.79); ~Hepatitis C Antibody Nonreactive (Nonreactive)
[2022-02-03 13:02] LABS: BV Int Neg Control Negative (Negative); BV Int Pos Control Positive (Positive)
[2022-02-08 06:51] LABS: HPV mRNA E6/E7 rflx Not Detected (Not Detected)
== END 2022-02-02 14:00 | disposition home or self-care (01) ==
LOC: HO.LAB 13:59
PROVIDERS: Visit Provider Obstetrics & Gynecology
DX: Z01.419 Encounter for gynecological examination (general) (routine) without abnormal findings (principal); Z11.51 Encounter for screening for human papillomavirus (HPV); Z11.4 Encounter for screening for human immunodeficiency virus [HIV]; Z11.3 Encounter for screening for infections with a predominantly sexual mode of transmission
CPT/HCPCS: 36415; 86780; 86803; 87340; 87389; 87480; 87491; 87510; 87591; 87624; 87660; 88142

== ENCOUNTER 2022-02-16 02:06 | Emergency (ER) | payer OTHER, SELFPAY ==
--- NOTE | ~2022-02-16 | CT_ITS ---
EXAMINATION: CT ABDOMEN AND PELVIS WITH CONTRAST CLINICAL INFORMATION: Suprapubic pain, history of tubo-ovarian abscess COMPARISON: 09/29/2021 TECHNIQUE: Multidetector volumetric images were obtained from the superior aspect of the liver through the pubic symphysis following administration 85 mL of Omnipaque 350 intravenous contrast. Sagittal and coronal reformatted images were obtained on the technologist's workstation. Oral contrast: No This CT examination was performed using dose optimization techniques as appropriate, variously including the following: *Automated exposure control *Adjustment of mA and/or kV according to patient size (this includes techniques or standardized protocols for targeted exams where dose is matched to indication/reason for exam; i.e. extremities or head) *Use of iterative reconstruction technique DLP: 376 mGy-cm FINDINGS: LUNG BASES: The visualized lung bases are unremarkable. LIVER, GALLBLADDER, AND BILIARY TREE: The liver is normal in size, shape, and attenuation. No focal hepatic lesion or biliary ductal dilatation is present. The gallbladder is unremarkable with no evidence of radiopaque gallstones, gallbladder wall thickening, or obvious pericholecystic inflammatory changes. PANCREAS: Unremarkable. SPLEEN: Unremarkable. ADRENAL GLANDS: Unremarkable. KIDNEYS AND URETERS: Bilateral nephrograms are symmetric. No hydronephrosis or obstructing calculus identified. Small hypodensity in the mid right kidney favors a cyst; no follow-up recommended. BLADDER: Bladder wall is mildly prominent, which may be sequelae of underdistention or possibly cystitis. GASTROINTESTINAL TRACT: No evidence of bowel obstruction or significant wall thickening. The appendix is unremarkable. No free fluid or free air is seen. ABDOMINAL WALL: No significant hernia is appreciated. LYMPH NODES: Normal. VASCULAR: Unremarkable. PELVIC VISCERA: There is mild asymmetric prominence of the left adnexa as compared to the right, which may reflect normal ovarian tissue with functional cysts. Prior stranding in the pelvis is no longer present. OSSEOUS STRUCTURES: Unremarkable. CT/CT abdomen pelvis w con IMPRESSION: 1. Mild asymmetric prominence of the left adnexa, which may reflect normal ovarian tissue with functional cysts. No associated stranding or additional pelvic collections to strongly suggest tubo-ovarian abscess. If clinically warranted, ovaries may be better assessed with pelvic ultrasound. 2. Mild prominence of the urinary bladder wall which may be due to underdistention versus cystitis in the proper setting. Correlation with urinalysis is recommended.
[2022-02-16 02:29] VITALS: BP 147/87; PULSE 103; RESP 18; TEMP 37.1; O2SAT 99; BMI 24.5
[2022-02-16 02:35] LABS: Hematocrit 38.5 % (37.0-47.0); Hemoglobin 12.8 g/dl (12.0-16.0); Mean Corpuscular HGB Conc 33.2 g/dl (31.0-35.0); Mean Corpuscular Hemoglobin 29.1 pg (27.0-33.0); Mean Corpuscular Volume 87.5 fL (80.0-98.0); Mean Platelet Volume 8.6 fL (9.4-12.3); Platelet Count 292 X10*3/uL (160-400); Red Cell Distribution Width 12.7 % (11.0-16.0); White Blood Count 7.7 X10*3/uL (4.8-10.8)
[2022-02-16 02:56] LABS: Alanine Aminotransferase 8 U/L (0-31); Albumin Level 4.4 g/dL (3.5-5.0); Alkaline Phosphatase 74 U/L (39-117); Anion Gap 12 (12-20); Aspartate Amino Transferase 13 U/L (5-31); Bilirubin Direct < 0.2 mg/dL (0.0-0.5); Bilirubin Total 0.3 mg/dL (0.0-1.0); Calcium 9.1 mg/dL (8.4-10.2); Carbon Dioxide 22 mmol/L (22-29); Chloride 108 mmol/L (96-108); Creatinine Clr Calc Pharmacy 79.3; Estimated Glomerular Filt Rate > 60; Glucose Random 111 mg/dL (60-115); Lipase 56 U/L (8-78); Potassium 4.3 mmol/L (3.3-5.1); Sodium 138 mmol/L (135-145); Total Protein 7.4 g/dL (6.5-8.0)
[2022-02-16 03:01] LABS: Blood Urea Nitrogen 11 mg/dL (9-16)
[2022-02-16 05:23] VITALS: BP 132/75; PULSE 88; RESP 17; TEMP 36.8; O2SAT 98
--- NOTE | 2022-02-16 05:23 | ED.GENADULT ---
HPI - General Adult General Chief complaint: General Medical Stated complaint: Lower back pain Time Seen by Provider: 02/16/22 05:14 Source: patient Mode of arrival: ambulatory Limitations: no limitations History of Present Illness HPI narrative: Patient comes to the emergency room complaining of suprapubic pain that started couple of days ago. Patient denies dysuria hematuria, no vaginal discharge. Patient states that it feels more like cramping. Of note, 4 months ago, patient tested negative for STDs, however she had a tubal ovarian abscess which was treated with IV antibiotics and was hospitalized. Patient states that the pain is similar, but this time is not as severe. Patient denies fever or chills. Related Data Previous Rx's Medication Instructions Recorded ketorolac 10 mg tablet 10 mg PO BID PRN pain 5 days #7 02/16/22 tabs Allergies Allergy/AdvReac Type Severity Reaction Status Date / Time No Known Allergies Allergy Verified 02/02/22 13:47 Review of Systems Review of Systems: Constitutional : No Weight loss, No Fever, No Chills, No Night Sweats, No Fatigue, No Malaise ENT/Mouth : No Hearing loss, No Ear Pain, No Nasal Congestion, No Sinus Pain, No Hoarseness, No sore throat, No Rhinorrhea, No Swallowing Difficulty Eyes: No Eye Pain, No Swelling, No Redness, No Foreign Body, No Discharge, No Vision Changes Cardiovascular : No Chest Pain, No SOB, No Dyspnea on Exertion, No Orthopnea, No Edema, No Palpitations Respiratory : No Cough, No Sputum, No Wheezing, No Smoke Exposure, No Dyspnea Gastrointestinal : No Nausea, No Vomiting, No Diarrhea, No Constipation, complaining of suprapubic pain, No Hematochezia, No Melena Genitourinary : no irregular bleeding, No Dysuria, No Urinary Frequency, No Hematuria, No Urinary Incontinence, No Urgency, No Flank Pain, No Urinary Flow Changes, No Hesitancy Musculoskeletal : No joint pain, No Myalgias, No Joint Swelling Skin : No Skin Lesions, No rash Neuro : No Weakness, No Numbness, No Paresthesias, No Loss of Consciousness, No Dizziness, No Headache Psych : No Anxiety/Panic, No Depression, No SI/HI/AH/VH, No Social Issues, Heme/Lymph: No Bruising, No Bleeding,No Lymphadenopathy Endocrine : No Polyuria, No Polydipsia, No Temperature Intolerance [facility] Past Medical History Medical History (Updated 02/16/22 @ 07:07 by Mana Russell MD) Tubo-ovarian abscess Family History Family History (Updated 02/02/22 @ 13:49 by Sun Garibay CMA) Mother Diabetes HTN (hypertension) Father HTN (hypertension) Social History Social History (Updated 02/02/22 @ 13:50 by Sun Garibay CMA) Household Members: None Housing: Apartment Alcohol intake: never Patient Tobacco Use Status: Never used Tobacco Use of substances other than those prescribed or required for medical reasons: No Advance Directives: No Advance Directives Information Provided: Yes service: No Current occupational status: employed 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 Oriented X3. No acute distress. Well-appearing Eyes: Pupils equal, round and reactive to light. ENT: Pharynx normal. Neck: Normal inspection. Neck supple. No lymph nodes noted. No crepitus CVS: Normal heart rate and rhythm. Pulses normal. Normal S1 and S2 Respiratory: No respiratory distress. Breath sounds normal. No Wheezing. No rales Abdomen: Soft and does not seem to have any tenderness to palpation even in the suprapubic area Skin: Skin warm and dry. Normal skin color. Normal skin turgor. Extremities: No lower extremity edema. No Lacerations. No Rash Neuro: Oriented X 3. No motor deficit. No sensory deficit. Moving all extremities. No slurred speech. CN 2 through 12 grossly intact Psych: calm, cooperative, normal affect Course Course Course Narrative: Patient's labs and chemistry are pending. CT scan and urinalysis pending. Patient is well-appearing. No significant pain to deep palpation on abdominal exam, 2 ovarian abscess or PID not suspected at this time. I discussed the labs and CT scan with the patient, patient's source of pain is likely a cyst, at this time, a tubo-ovarian abscess is not suspected. Patient was given 1 dose of IM Toradol. Medical Decision Making Lab Data Result diagrams: 02/16/22 02:31 02/16/22 02:31 Labs: Lab Results 02/16/22 02/16/22 02/16/22 Range/Units 02:31 02:31 06:04 WBC 7.7 (4.8-10.8) X10*3/uL RBC 4.40 D (4.20-5.50) X10*6/uL Hgb 12.8 D (12.0-16.0) g/dl Hct 38.5 D (37.0-47.0) % MCV 87.5 (80.0-98.0) fL MCH 29.1 (27.0-33.0) pg MCHC 33.2 (31.0-35.0) g/dl RDW 12.7 (11.0-16.0) % Plt Count 292 (160-400) X10*3/uL MPV 8.6 L (9.4-12.3) fL Absolute Nucleated RBC 0.000 (0.0-0.012) X10*3/uL Nucleated RBC % (auto) 0.0 (0.0-0.2) /100WBC Sodium 138 (135-145) mmol/L Potassium 4.3 (3.3-5.1) mmol/L Chloride 108 (96-108) mmol/L Carbon Dioxide 22 (22-29) mmol/L Anion Gap 12 (12-20) BUN 11 (9-16) mg/dL Creatinine 0.77 (0.5-1.4) mg/dL Estim Creat Clear Calc 79.3 Estimated GFR > 60 Random Glucose 111 (60-115) mg/dL Calcium 9.1 (8.4-10.2) mg/dL Total Bilirubin 0.3 (0.0-1.0) mg/dL Direct Bilirubin < 0.2 (0.0-0.5) mg/dL AST 13 (5-31) U/L ALT 8 (0-31) U/L Alkaline Phosphatase 74 D (39-117) U/L Total Protein 7.4 (6.5-8.0) g/dL Albumin 4.4 (3.5-5.0) g/dL Lipase 56 (8-78) U/L Urine Color Yellow Urine Appearance Clear Urine pH 5.5 (5.0-8.0) Ur Specific [place] <= 1.005 (1.005-1.025) Urine Protein Negative (Neg-Trace) mg/dL Urine Glucose (UA) Negative (Negative) mg/dL Urine Ketones Negative (Negative) mg/dL Urine Blood Moderate (2+) H (Negative) Urine Nitrite Negative (Negative) Ur Leukocyte Esterase Negative (Negative) Urine RBC 3-5 H (0-2) /HPF Urine WBC 0-5 (0-5) /HPF Ur Squamous Epith Cells 0-2 (0-2) /HPF Urine Bacteria None Seen (None Seen) Hyaline Casts 0-2 (0-2) /LPF Imaging Data CT scan - abdomen: Radiologist's impression: FINDINGS: LUNG BASES: The visualized lung bases are unremarkable.? LIVER, GALLBLADDER, AND BILIARY TREE: The liver is normal in size, shape, and attenuation. No focal hepatic lesion or biliary ductal dilatation is present. The gallbladder is unremarkable with no evidence of radiopaque gallstones, gallbladder wall thickening, or obvious pericholecystic inflammatory changes.? PANCREAS: Unremarkable.? SPLEEN: Unremarkable.? ADRENAL GLANDS: Unremarkable.? KIDNEYS AND URETERS: Bilateral nephrograms are symmetric. No hydronephrosis or obstructing calculus identified. Small hypodensity in the mid right kidney favors a cyst; no follow-up recommended.? BLADDER: Bladder wall is mildly prominent, which may be sequelae of underdistention or possibly cystitis.? GASTROINTESTINAL TRACT: No evidence of bowel obstruction or significant wall thickening. The appendix is unremarkable. No free fluid or free air is seen.? ABDOMINAL WALL: No significant hernia is appreciated.? LYMPH NODES: Normal. VASCULAR: Unremarkable. PELVIC VISCERA: There is mild asymmetric prominence of the left adnexa as compared to the right, which may reflect normal ovarian tissue with functional cysts. Prior stranding in the pelvis is no longer present.? OSSEOUS STRUCTURES: Unremarkable.? CT/CT abdomen pelvis w con IMPRESSION: 1.? Mild asymmetric prominence of the left adnexa, which may reflect normal ovarian tissue with functional cysts. No associated stranding or additional pelvic collections to strongly suggest tubo-ovarian abscess. If clinically warranted, ovaries may be better assessed with pelvic ultrasound. 2.? Mild prominence of the urinary bladder wall which may be due to underdistention versus cystitis in the proper setting. Correlation with urinalysis is recommended. Discharge Plan Discharge Clinical Impression: Functional cyst of ovary Patient Disposition: Home, Self-Care Instructions: Ovarian Cyst (ED) Additional Instructions: Please follow-up with your primary care physician tomorrow. If you have any worsening or new symptoms, please return to the emergency room or call 911 Prescriptions: New ketorolac 10 mg tablet 10 mg PO BID PRN (Reason: pain) 5 Days Qty: 7 0RF Rx Instructions: Do not use this medication with NSAIDs, only Tylenol if needed
[2022-02-16 06:12] LABS: Appearance Urine Clear; Color Urine Yellow; Glucose Urine UA Negative (Negative); Leukocyte Esterase Urine Negative (Negative); Nitrite Urine Negative (Negative); PH 5.5 (5.0-8.0); Specific Gravity - Urine <= 1.005 (1.005-1.025); Urine Blood Moderate (2+) (Negative); Urine Ketones Negative (Negative); Urine Protein Negative (Neg-Trace)
[2022-02-16] MEDS: iohexoL 350 MG/ML 100 ML INFUS..BTL 85 ML IV (06:17)
--- NOTE | 2022-02-16 06:19 | PC.NURSE ---
pt returned to room from CT. resting quietly in bed, lights remain on per patients request.
[2022-02-16 06:27] LABS: Bacteria Urine None Seen (None Seen); Hyaline Casts Urine 0-2 /LPF (0-2); Squamous Epithelial Cell Urine 0-2 /HPF (0-2); WBC Urine 0-5 /HPF (0-5)
[2022-02-16] MEDS: Ketorolac Tromethamine 15 MG/ML VIAL 30 MG IVPUSH (07:42)
== END 2022-02-16 08:02 | disposition home or self-care (01) ==
PROVIDERS: Emergency Provider Emergency Medicine; PCP Internal Medicine
DX: N83.202 Unspecified ovarian cyst, left side (principal); M54.50 Low back pain, unspecified; R10.2 Pelvic and perineal pain; Z79.899 Other long term (current) drug therapy
CPT/HCPCS: 36415; 74177; 80053; 81001; 82248; 83690; 85027; 96374; 99284; J1885; Q9967

== ENCOUNTER 2022-03-08 08:39 | Outpatient (REF) | payer OTHER, SELFPAY ==
--- NOTE | ~2022-03-08 | MM_ITS ---
EXAMINATION: MM SCREENING DIGITAL BREAST TOMOSYNTHESIS, BILATERAL CLINICAL INFORMATION: Screening. Asymptomatic. The lifetime risk of breast cancer based on the Tyrer-Cuzick Model is 9%. COMPARISON: Mammography: None TECHNIQUE: Digital breast tomosynthesis is performed in both the craniocaudal and mediolateral oblique views along with computer-aided detection (CAD). Synthesized 2D images are generated from the tomosynthesis. FINDINGS: The breasts are heterogeneously dense, which may obscure small masses (ACR BI-RADS breast composition Category c). There are no significant masses, abnormal calcifications, or other abnormalities. MM/MM tomosynthesis screening BI IMPRESSION: No mammographic evidence of malignancy. ASSESSMENT: BI-RADS 1: Negative RECOMMENDATION: Routine annual mammography screening. This patient's information was entered into a reminder system with a target due date for their next mammogram.
== END 2022-03-08 08:40 | disposition home or self-care (01) ==
LOC: HO.MAMMO 08:39
PROVIDERS: Visit Provider Obstetrics & Gynecology
DX: Z12.31 Encounter for screening mammogram for malignant neoplasm of breast (principal)
CPT/HCPCS: 77063; 77067

== ENCOUNTER 2022-07-31 12:12 | Emergency (ER) | payer OTHER, SELFPAY ==
--- NOTE | ~2022-07-31 | CT_ITS ---
EXAMINATION: CT abdomen pelvis wo IV con CLINICAL INFORMATION: Reason for Exam pelvic pain history of cyst COMPARISON: January 2022 TECHNIQUE: Multidetector volumetric imaging was performed from the superior aspect of the liver through the pubic symphysis , noncontrasted study. Sagittal and coronal reformatted images were obtained on the technologist's workstation. This CT examination was performed using dose optimization techniques as appropriate, variously including the following: *Automated exposure control *Adjustment of mA and/or kV according to patient size (this includes techniques or standardized protocols for targeted exams where dose is matched to indication/reason for exam; i.e. extremities or head) *Use of iterative reconstruction technique DLP: 422 mGy-cm FINDINGS: LOWER THORAX: Included lung bases are clear. HEPATOBILIARY: No focal hepatic lesions. No biliary ductal dilatation. GALLBLADDER: Gallbladder unremarkable. SPLEEN: Spleen is normal in size. PANCREAS: No focal mass or ductal dilatation. STOMACH AND GASTROINTESTINAL TRACT: Stomach is grossly unremarkable. There is no bowel distention or thickening. Alvarado amount of stool in the colon and rectum suggesting constipation. ADRENALS: No adrenal nodules. KIDNEYS/URETERS: No hydronephrosis, stones or solid mass lesions. URINARY BLADDER: Partially decompressed. PELVIC VISCERA: Redemonstration of left adnexal soft tissue structure 4.3 cm, this correlates with a complex cystic mass seen on ultrasound done same day. PERITONEUM: No free air or fluid. LYMPH NODES: No lymphadenopathy. VASCULAR:Abdominal aorta normal in size, no aneurysm found. BONES, ABDOMINAL WALL AND SOFT TISSUES: Age-appropriate changes of the spine and skeletal system, no destructive osteolytic or osteosclerotic bone lesion found CT/CT abdomen pelvis wo IV con IMPRESSION: * Redemonstration of left adnexal soft tissue structure 4.3 cm, this correlates with a complex cystic mass seen on ultrasound done same day. As previously recommended, [employer] consultation is advised, May consider further investigation with contrast-enhanced MRI clinically indicated. * Large amount of stool in the colon and rectum suggesting constipation.
--- NOTE | ~2022-07-31 | US_ITS ---
EXAMINATION: US PELVIS CLINICAL INFORMATION: Pelvic pain with history of cyst COMPARISON: CT dated 02/16/2022 0 TECHNIQUE: Ultrasound of the pelvis is performed using both transabdominal and transvaginal transducers along with Doppler. Transvaginal imaging is performed due to inadequate visualization transabdominally. FINDINGS: The uterus is measuring 6 x 3.2 x 4.5 cm. The endometrial thickness is 6 mm. The right ovary is 1.9 x 1.5 x 2 cm. Volume 3 mL. The right ovary is 4.6 x 3.3 x 3.8 cm. There appears to be a cyst lesion associated with the ovary measuring 3.1 x 3 x 2.8 cm. This is solid with surrounding cystic areas. This solid portion could represent hemorrhage. No significant internal vascularity on interrogation. No free fluid. US/US pelvic and transvaginal IMPRESSION: Complex cystic solid lesion associated with left ovary. Hemorrhagic component cannot be excluded. Gynecologic consultation is recommended. No free fluid.
[2022-07-31 12:40] VITALS: BP 161/87; PULSE 107; RESP 16; TEMP 36.9; O2SAT 100; BMI 24.9
--- NOTE | 2022-07-31 12:40 | ED.ABDPAIN ---
HPI - Abdominal Pain General Chief Complaint: Abdominal Pain Stated Complaint: abd pain, back pain Time Seen by Provider: 07/31/22 14:20 Related Data Previous Rx's Medication Instructions Recorded ketorolac 10 mg tablet 10 mg PO BID PRN pain 5 days #7 02/16/22 tabs ibuprofen 400 mg tablet 400 mg PO Q6H PRN Pain #60 tabs 07/31/22 Allergies Allergy/AdvReac Type Severity Reaction Status Date / Time No Known Allergies Allergy Verified 02/02/22 13:47 [facility] Past Medical History Medical History (Updated 08/01/22 @ 00:01 by Federico Christie) Tubo-ovarian abscess Family History Family History (Updated 02/02/22 @ 13:49 by Sun Garibay CMA) Mother Diabetes HTN (hypertension) Father HTN (hypertension) Social History Social History (Updated 02/02/22 @ 13:50 by Sun Garibay CMA) Household Members: None Housing: Apartment Alcohol intake: never Patient Tobacco Use Status: Never used Tobacco service: No Current occupational status: employed 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 Denies associated nausea, vomiting, diarrhea or fever Patient mildly tachycardic Ent[place] 107. Low suspicion for severe sepsis at this time Labs, UA, ordered in triage Medical Decision Making Lab Data 07/31/22 13:39 07/31/22 13:39 Labs: Lab Results 07/31/22 07/31/22 07/31/22 Range/Units 13:38 13:38 13:39 WBC 5.7 (4.8-10.8) X10*3/uL RBC 4.39 (4.20-5.50) X10*6/uL Hgb 12.7 (12.0-16.0) g/dl Hct 38.4 (37.0-47.0) % MCV 87.5 (80.0-98.0) fL MCH 28.9 (27.0-33.0) pg MCHC 33.1 (31.0-35.0) g/dl RDW 12.9 (11.0-16.0) % Plt Count 271 (160-400) X10*3/uL MPV 8.7 L (9.4-12.3) fL Immature Gran % (Auto) 0.2 (0.0-0.4) % Neut % (Auto) 59.8 (45-73) % Lymph % (Auto) 29.3 (20-40) % [place] % (Auto) 8.7 (2-11) % Eos % (Auto) 1.6 (0-4) % Baso % (Auto) 0.4 (0-2) % Lymph # (Auto) 1.7 (1.2-4.9) X10*3/uL [place] # (Auto) 0.5 (0.1-1.2) X10*3/uL Eos # (Auto) 0.1 (0.0-0.4) X10*3/uL Baso # (Auto) 0.0 (0.0-0.2) X10*3/uL Abs Immat Gran (auto) 0.01 (0.00-0.03) X10*3/uL Absolute Neuts (auto) 3.4 (2.0-8.3) x10*3/uL Absolute Nucleated RBC 0.000 (0.0-0.012) X10*3/uL Nucleated RBC % (auto) 0.0 (0.0-0.2) /100WBC Sodium (135-145) mmol/L Potassium (3.3-5.1) mmol/L Chloride (96-108) mmol/L Carbon Dioxide (22-29) mmol/L Anion Gap (12-20) BUN (9-16) mg/dL Creatinine (0.5-1.4) mg/dL Estim Creat Clear Calc Estimated GFR Random Glucose (60-115) mg/dL Calcium (8.4-10.2) mg/dL Magnesium (1.6-2.6) mg/dL Total Bilirubin (0.0-1.0) mg/dL Direct Bilirubin (0.0-0.5) mg/dL AST (5-31) U/L ALT (0-31) U/L Alkaline Phosphatase (39-117) U/L Total Protein (6.5-8.0) g/dL Albumin (3.5-5.0) g/dL Lipase (8-78) U/L Urine Color Yellow Urine Appearance Clear Urine pH 7.5 (5.0-9.0) Ur Specific [place] <= 1.005 (1.005-1.025) Urine Protein Negative (Neg-Trace) mg/dL Urine Glucose (UA) Negative (Negative) mg/dL Urine Ketones Negative (Negative) mg/dL Urine Blood Moderate (2+) H (Negative) Urine Nitrite Negative (Negative) Ur Leukocyte Esterase Trace H (Negative) Urine RBC 3-5 H (0-2) /HPF Urine WBC 0-5 (0-5) /HPF Ur Squamous Epith Cells 0-2 (0-2) /HPF Urine Bacteria None Seen (None Seen) Hyaline Casts 0-2 (0-2) /LPF Urine Test NEGATIVE (NEGATIVE) 07/31/22 Range/Units 13:39 WBC (4.8-10.8) X10*3/uL RBC (4.20-5.50) X10*6/uL Hgb (12.0-16.0) g/dl Hct (37.0-47.0) % MCV (80.0-98.0) fL MCH (27.0-33.0) pg MCHC (31.0-35.0) g/dl RDW (11.0-16.0) % Plt Count (160-400) X10*3/uL MPV (9.4-12.3) fL Immature Gran % (Auto) (0.0-0.4) % Neut % (Auto) (45-73) % Lymph % (Auto) (20-40) % [place] % (Auto) (2-11) % Eos % (Auto) (0-4) % Baso % (Auto) (0-2) % Lymph # (Auto) (1.2-4.9) X10*3/uL [place] # (Auto) (0.1-1.2) X10*3/uL Eos # (Auto) (0.0-0.4) X10*3/uL Baso # (Auto) (0.0-0.2) X10*3/uL Abs Immat Gran (auto) (0.00-0.03) X10*3/uL Absolute Neuts (auto) (2.0-8.3) x10*3/uL Absolute Nucleated RBC (0.0-0.012) X10*3/uL Nucleated RBC % (auto) (0.0-0.2) /100WBC Sodium 139 (135-145) mmol/L Potassium 4.0 (3.3-5.1) mmol/L Chloride 107 (96-108) mmol/L Carbon Dioxide 23 (22-29) mmol/L Anion Gap 13 (12-20) BUN 9 (9-16) mg/dL Creatinine 0.75 (0.5-1.4) mg/dL Estim Creat Clear Calc 81.2 Estimated GFR > 60 Random Glucose 103 (60-115) mg/dL Calcium 9.4 (8.4-10.2) mg/dL Magnesium 2.1 (1.6-2.6) mg/dL Total Bilirubin 0.3 (0.0-1.0) mg/dL Direct Bilirubin < 0.2 (0.0-0.5) mg/dL AST 16 (5-31) U/L ALT 12 (0-31) U/L Alkaline Phosphatase 61 (39-117) U/L Total Protein 7.0 (6.5-8.0) g/dL Albumin 4.2 (3.5-5.0) g/dL Lipase 37 (8-78) U/L Urine Color Urine Appearance Urine pH (5.0-9.0) Ur Specific [place] (1.005-1.025) Urine Protein (Neg-Trace) mg/dL Urine Glucose (UA) (Negative) mg/dL Urine Ketones (Negative) mg/dL Urine Blood (Negative) Urine Nitrite (Negative) Ur Leukocyte Esterase (Negative) Urine RBC (0-2) /HPF Urine WBC (0-5) /HPF Ur Squamous Epith Cells (0-2) /HPF Urine Bacteria (None Seen) Hyaline Casts (0-2) /LPF Urine Test (NEGATIVE) Medications Administered Discontinued Medications Generic Name Dose Route Start Last Admin Trade Name Freq PRN Reason Stop Dose Admin Sodium Chloride 1,000 mls @ 999 mls/hr 07/31/22 14:30 07/31/22 14:45 Ns IV 07/31/22 15:30 999 mls/hr .Q1H1M LISET Administration Ketorolac Tromethamine 15 mg 07/31/22 14:33 07/31/22 15:09 Ketorolac Tromethamine 15 Mg/Ml Vial IVPUSH 07/31/22 14:34 15 mg ONCE ONE Administration Morphine Sulfate 4 mg 07/31/22 14:27 07/31/22 14:44 Morphine Sulfate 4 Mg/Ml Cartridge IVPUSH 07/31/22 14:28 4 mg ONCE ONE Administration Protocol Discharge Plan Discharge Clinical Impression: Hemorrhagic cyst of left ovary Patient Disposition: Home, Self-Care Instructions: Ovarian Cyst (ED) Additional Instructions: Please call to follow up with Dr. Saunders. If you have worsening pain or any other concerns please returnn to the ED. Prescriptions: New ibuprofen 400 mg tablet 400 mg PO Q6H PRN (Reason: Pain) Qty: 60 0RF No Action ketorolac 10 mg tablet 10 mg PO BID PRN (Reason: pain) 5 Days Qty: 7 0RF Rx Instructions: Do not use this medication with NSAIDs, only Tylenol if needed Stand Alone Forms: Work/School Release Interventions: ED Discharge Assessment Last Done: 07/31/22 16:38 Discharge Date/Time: 07/31/22 16:39
[2022-07-31 13:44] LABS: MANUAL DIFF FLAG NO
[2022-07-31 13:45] LABS: Basophils Percent Auto 0.4 % (0-2); Eosinophils Absolute Auto 0.1 X10*3/uL (0.0-0.4); Eosinophils Percent Auto 1.6 % (0-4); Hematocrit 38.4 % (37.0-47.0); Hemoglobin 12.7 g/dl (12.0-16.0); Imm Gran Abs Auto 0.01 X10*3/uL (0.00-0.03); Imm Gran Pct Auto 0.2 % (0.0-0.4); Lymphocytes Absolute Auto 1.7 X10*3/uL (1.2-4.9); Lymphocytes Percent Auto 29.3 % (20-40); Mean Corpuscular HGB Conc 33.1 g/dl (31.0-35.0); Mean Corpuscular Hemoglobin 28.9 pg (27.0-33.0); Mean Corpuscular Volume 87.5 fL (80.0-98.0); Mean Platelet Volume 8.7 fL (9.4-12.3); Monocytes Absolute Auto 0.5 X10*3/uL (0.1-1.2); Monocytes Percent Auto 8.7 % (2-11); Neutrophils Absolute Auto 3.4 x10*3/uL (2.0-8.3); Neutrophils Percent Auto 59.8 % (45-73); Platelet Count 271 X10*3/uL (160-400); Red Blood Count 4.39 X10*6/uL (4.20-5.50); Red Cell Distribution Width 12.9 % (11.0-16.0); White Blood Count 5.7 X10*3/uL (4.8-10.8)
[2022-07-31 13:47] LABS: Appearance Urine Clear; Color Urine Yellow; Glucose Urine UA Negative (Negative); Leukocyte Esterase Urine Trace (Negative); Nitrite Urine Negative (Negative); PH 7.5 (5.0-9.0); Specific Gravity - Urine <= 1.005 (1.005-1.025); UMIC TRIGGER UACC YES; Urine Blood Moderate (2+) (Negative); Urine Ketones Negative (Negative); Urine Protein Negative (Neg-Trace)
[2022-07-31 13:49] LABS: UPreg QC Valid YES; Urine Pregnancy NEGATIVE (NEGATIVE)
[2022-07-31 13:58] LABS: Bacteria Urine None Seen (None Seen); Hyaline Casts Urine 0-2 /LPF (0-2); Squamous Epithelial Cell Urine 0-2 /HPF (0-2); WBC Urine 0-5 /HPF (0-5)
[2022-07-31 14:08] LABS: Alanine Aminotransferase 12 U/L (0-31); Albumin Level 4.2 g/dL (3.5-5.0); Alkaline Phosphatase 61 U/L (39-117); Anion Gap 13 (12-20); Aspartate Amino Transferase 16 U/L (5-31); Bilirubin Direct < 0.2 mg/dL (0.0-0.5); Bilirubin Total 0.3 mg/dL (0.0-1.0); Blood Urea Nitrogen 9 mg/dL (9-16); Calcium 9.4 mg/dL (8.4-10.2); Carbon Dioxide 23 mmol/L (22-29); Chloride 107 mmol/L (96-108); Creatinine Clr Calc Pharmacy 81.2; Estimated Glomerular Filt Rate > 60; Glucose Random 103 mg/dL (60-115); Lipase 37 U/L (8-78); Magnesium 2.1 mg/dL (1.6-2.6); Sodium 139 mmol/L (135-145)
--- NOTE | 2022-07-31 14:31 | ED.ABDPAIN ---
HPI - Abdominal Pain General Chief Complaint: Abdominal Pain Stated Complaint: abd pain, back pain Time Seen by Provider: 07/31/22 14:20 Source: patient Mode of arrival: ambulatory Limitations: no limitations History of Present Illness HPI narrative: 42-year-old female presents emergency department with pelvic pain. Patient has been here 3 times past year she did have a tubo-ovarian abscess they required admission for 3 days she has since come back in January of last year and had negative workup was sent home for ovarian cyst. Patient presents again similar to her previous 2 visits. Patient denies any vaginal discharge vaginal bleeding or dysuria. MD elicited complaint: other Related Data Previous Rx's Medication Instructions Recorded ketorolac 10 mg tablet 10 mg PO BID PRN pain 5 days #7 02/16/22 tabs ibuprofen 400 mg tablet 400 mg PO Q6H PRN Pain #60 tabs 07/31/22 Allergies Allergy/AdvReac Type Severity Reaction Status Date / Time No Known Allergies Allergy Verified 02/02/22 13:47 Review of Systems Review of Systems Review of systems: General: Patient denies any fever chills recent illness or falls Musculoskeletal: Denies back pain or body aches or other injuries HEENT: denies headache, runny nose, ear pain Respiratory: denies shortness of breath, cough Cardiovascular: no chest pain or palpitations : denies dysuria, frequency Abdomen: Pelvic pain no nausea vomiting denies abdominal pain Extremities: no swelling, no pain Skin: no diaphoresis Yes all other systems are reviewed and are negative PMFSH Past Medical History Medical History (Updated 07/31/22 @ 16:10 by Trevor Merino DO) Tubo-ovarian abscess Family History Family History (Updated 02/02/22 @ 13:49 by Sun Garibay CMA) Mother Diabetes HTN (hypertension) Father HTN (hypertension) Social History Social History (Updated 02/02/22 @ 13:50 by Sun Garibay CMA) Household Members: None Housing: Apartment Alcohol intake: never Patient Tobacco Use Status: Never used Tobacco Advance Directives: No Advance Directives Information Provided: Yes Patient : No service: No 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 Oriented X3. No acute distress. Well-appearing Eyes: Pupils equal, round and reactive to light. ENT: Pharynx normal. Neck: Normal inspection. Neck supple. No lymph nodes noted. No crepitus CVS: Normal heart rate and rhythm. Pulses normal. Normal S1 and S2 Respiratory: No respiratory distress. Breath sounds normal. No Wheezing. No rales Abdomen: Soft and does not seem to have any tenderness to palpation even in the suprapubic area Skin: Skin warm and dry. Normal skin color. Normal skin turgor. Extremities: No lower extremity edema. No Lacerations. No Rash Neuro: Oriented X 3. No motor deficit. No sensory deficit. Moving all extremities. No slurred speech. CN 2 through 12 grossly intact Psych: calm, cooperative, normal affect Medical Decision Making Medical Decision Making [facility] Narrative: Patient did well with Toradol last time I will give morphine and Toradol will check labs patient had tested negative for any STIs last time she is only active with 1 partner. [id number] 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 If pain is well controlled she can follow up. Differential Diagnosis Differential Diagnoses: The differential diagnosis associated with the presentation includes Pelvic inflammatory disease tubo-ovarian abscess versus cyst patient had a tubular mass was once in the past but has also back assisted Admission/Observation Consideration of admission/observation: Escalation of care including admission/observation considered Consult Healthcare Provider Management of the patient was discussed with: Work Study Student Dr. Saunders Lab Data [facility] Lab Attestation statement: I reviewed the patient's lab results. 07/31/22 13:39 07/31/22 13:39 Labs: Lab Results 07/31/22 07/31/22 07/31/22 Range/Units 13:38 13:38 13:39 WBC 5.7 (4.8-10.8) X10*3/uL RBC 4.39 (4.20-5.50) X10*6/uL Hgb 12.7 (12.0-16.0) g/dl Hct 38.4 (37.0-47.0) % MCV 87.5 (80.0-98.0) fL MCH 28.9 (27.0-33.0) pg MCHC 33.1 (31.0-35.0) g/dl RDW 12.9 (11.0-16.0) % Plt Count 271 (160-400) X10*3/uL MPV 8.7 L (9.4-12.3) fL Immature Gran % (Auto) 0.2 (0.0-0.4) % Neut % (Auto) 59.8 (45-73) % Lymph % (Auto) 29.3 (20-40) % [place] % (Auto) 8.7 (2-11) % Eos % (Auto) 1.6 (0-4) % Baso % (Auto) 0.4 (0-2) % Lymph # (Auto) 1.7 (1.2-4.9) X10*3/uL [place] # (Auto) 0.5 (0.1-1.2) X10*3/uL Eos # (Auto) 0.1 (0.0-0.4) X10*3/uL Baso # (Auto) 0.0 (0.0-0.2) X10*3/uL Abs Immat Gran (auto) 0.01 (0.00-0.03) X10*3/uL Absolute Neuts (auto) 3.4 (2.0-8.3) x10*3/uL Absolute Nucleated RBC 0.000 (0.0-0.012) X10*3/uL Nucleated RBC % (auto) 0.0 (0.0-0.2) /100WBC Sodium (135-145) mmol/L Potassium (3.3-5.1) mmol/L Chloride (96-108) mmol/L Carbon Dioxide (22-29) mmol/L Anion Gap (12-20) BUN (9-16) mg/dL Creatinine (0.5-1.4) mg/dL Estim Creat Clear Calc Estimated GFR Random Glucose (60-115) mg/dL Calcium (8.4-10.2) mg/dL Magnesium (1.6-2.6) mg/dL Total Bilirubin (0.0-1.0) mg/dL Direct Bilirubin (0.0-0.5) mg/dL AST (5-31) U/L ALT (0-31) U/L Alkaline Phosphatase (39-117) U/L Total Protein (6.5-8.0) g/dL Albumin (3.5-5.0) g/dL Lipase (8-78) U/L Urine Color Yellow Urine Appearance Clear Urine pH 7.5 (5.0-9.0) Ur Specific [place] <= 1.005 (1.005-1.025) Urine Protein Negative (Neg-Trace) mg/dL Urine Glucose (UA) Negative (Negative) mg/dL Urine Ketones Negative (Negative) mg/dL Urine Blood Moderate (2+) H (Negative) Urine Nitrite Negative (Negative) Ur Leukocyte Esterase Trace H (Negative) Urine RBC 3-5 H (0-2) /HPF Urine WBC 0-5 (0-5) /HPF Ur Squamous Epith Cells 0-2 (0-2) /HPF Urine Bacteria None Seen (None Seen) Hyaline Casts 0-2 (0-2) /LPF Urine Test NEGATIVE (NEGATIVE) 07/31/22 Range/Units 13:39 WBC (4.8-10.8) X10*3/uL RBC (4.20-5.50) X10*6/uL Hgb (12.0-16.0) g/dl Hct (37.0-47.0) % MCV (80.0-98.0) fL MCH (27.0-33.0) pg MCHC (31.0-35.0) g/dl RDW (11.0-16.0) % Plt Count (160-400) X10*3/uL MPV (9.4-12.3) fL Immature Gran % (Auto) (0.0-0.4) % Neut % (Auto) (45-73) % Lymph % (Auto) (20-40) % [place] % (Auto) (2-11) % Eos % (Auto) (0-4) % Baso % (Auto) (0-2) % Lymph # (Auto) (1.2-4.9) X10*3/uL [place] # (Auto) (0.1-1.2) X10*3/uL Eos # (Auto) (0.0-0.4) X10*3/uL Baso # (Auto) (0.0-0.2) X10*3/uL Abs Immat Gran (auto) (0.00-0.03) X10*3/uL Absolute Neuts (auto) (2.0-8.3) x10*3/uL Absolute Nucleated RBC (0.0-0.012) X10*3/uL Nucleated RBC % (auto) (0.0-0.2) /100WBC Sodium 139 (135-145) mmol/L Potassium 4.0 (3.3-5.1) mmol/L Chloride 107 (96-108) mmol/L Carbon Dioxide 23 (22-29) mmol/L Anion Gap 13 (12-20) BUN 9 (9-16) mg/dL Creatinine 0.75 (0.5-1.4) mg/dL Estim Creat Clear Calc 81.2 Estimated GFR > 60 Random Glucose 103 (60-115) mg/dL Calcium 9.4 (8.4-10.2) mg/dL Magnesium 2.1 (1.6-2.6) mg/dL Total Bilirubin 0.3 (0.0-1.0) mg/dL Direct Bilirubin < 0.2 (0.0-0.5) mg/dL AST 16 (5-31) U/L ALT 12 (0-31) U/L Alkaline Phosphatase 61 (39-117) U/L Total Protein 7.0 (6.5-8.0) g/dL Albumin 4.2 (3.5-5.0) g/dL Lipase 37 (8-78) U/L Urine Color Urine Appearance Urine pH (5.0-9.0) Ur Specific [place] (1.005-1.025) Urine Protein (Neg-Trace) mg/dL Urine Glucose (UA) (Negative) mg/dL Urine Ketones (Negative) mg/dL Urine Blood (Negative) Urine Nitrite (Negative) Ur Leukocyte Esterase (Negative) Urine RBC (0-2) /HPF Urine WBC (0-5) /HPF Ur Squamous Epith Cells (0-2) /HPF Urine Bacteria (None Seen) Hyaline Casts (0-2) /LPF Urine Test (NEGATIVE) Independent Interpretation I performed an independent interpretation of an: Ultrasound and CT Scan Radiology Impression Discussion of test interpretation with radiology: I have reviewed the radiologist's reading. External Record Review External record reviewed: Inpatient record, Outpatient record, Prior outpatient labs and Prior outpatient radiology Medications Administered Discontinued Medications Generic Name Dose Route Start Last Admin Trade Name Freq PRN Reason Stop Dose Admin Sodium Chloride 1,000 mls @ 999 mls/hr 07/31/22 14:30 07/31/22 14:45 Ns IV 07/31/22 15:30 999 mls/hr .Q1H1M LISET Administration Ketorolac Tromethamine 15 mg 07/31/22 14:33 07/31/22 15:09 Ketorolac Tromethamine 15 Mg/Ml Vial IVPUSH 07/31/22 14:34 15 mg ONCE ONE Administration Morphine Sulfate 4 mg 07/31/22 14:27 07/31/22 14:44 Morphine Sulfate 4 Mg/Ml Cartridge IVPUSH 07/31/22 14:28 4 mg ONCE ONE Administration Protocol Discharge Plan Discharge Clinical Impression: Hemorrhagic cyst of left ovary Patient Disposition: Home, Self-Care Instructions: Ovarian Cyst (ED) Additional Instructions: Please call to follow up with Dr. Saunders. If you have worsening pain or any other concerns please returnn to the ED. Prescriptions: New ibuprofen 400 mg tablet 400 mg PO Q6H PRN (Reason: Pain) Qty: 60 0RF No Action ketorolac 10 mg tablet 10 mg PO BID PRN (Reason: pain) 5 Days Qty: 7 0RF Rx Instructions: Do not use this medication with NSAIDs, only Tylenol if needed Stand Alone Forms: Work/School Release
[2022-07-31] MEDS: Morphine Sulfate 4 MG/ML CARTRIDGE IVPUSH (14:44)
[2022-07-31] MEDS: 0.9 % Sodium Chloride 1,000 ML 999 ML IV (14:45)
--- NOTE | 2022-07-31 14:50 | PC.NURSE ---
pt went to ultrasound via w/c.
[2022-07-31] MEDS: Ketorolac Tromethamine 15 MG/ML VIAL IVPUSH (15:09)
[2022-07-31 15:14] VITALS: BP 131/84; PULSE 101; RESP 19; TEMP 36.8; O2SAT 98
--- NOTE | 2022-07-31 17:39 | P.CONOB_ITS ---
EMPLOYMENT LAW SPECIALIST - CN: HPI Data of Consult Consult date: 07/31/22 Primary Care Provider: Remington Saunders MD Consult Narrative Narrative: Late entry note I was consulted Natasha Hernandez who is a 42 year old female presented to the emergency room complaining of pelvic pain, no associated vaginal discharge, vaginal bleeding, urinary frequency or dysuria. The following workup was done emergency room CBC, chemistry, UA and a urine test or negative. Pelvic ultrasound showed a 4.3 cm left complex ovarian cyst possibly hemorrhagic cyst, CT scan of abdomen pelvis showed the same cc:: CC: OB [facility] Past Medical History Medical History (Updated 07/31/22 @ 18:52 by Remington Saunders MD) Tubo-ovarian abscess Family History Family History (Updated 02/02/22 @ 13:49 by Sun Garibay CMA) Mother Diabetes HTN (hypertension) Father HTN (hypertension) Social History Social History (Updated 02/02/22 @ 13:50 by Sun Garibay CMA) Household Members: None Housing: Apartment Alcohol intake: never Patient Tobacco Use Status: Never used Tobacco Advance Directives: No Advance Directives Information Provided: Yes Patient : No service: No 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 Zelaya as the follow-up: Abdomen: Soft and does not seem to have any tenderness to palpation even in the suprapubic area EMPLOYMENT LAW SPECIALIST - Results Labs 07/31/22 13:39 07/31/22 13:39 Labs: Short CBC 07/31/22 Range/Units 13:39 WBC 5.7 (4.8-10.8) X10*3/uL Hgb 12.7 (12.0-16.0) g/dl Hct 38.4 (37.0-47.0) % Plt Count 271 (160-400) X10*3/uL BMP 07/31/22 13:39 Sodium 139 Potassium 4.0 Chloride 107 Carbon Dioxide 23 BUN 9 Creatinine 0.75 Calcium 9.4 Liver Function 07/31/22 Range/Units 13:39 Total Bilirubin 0.3 (0.0-1.0) mg/dL Direct Bilirubin < 0.2 (0.0-0.5) mg/dL AST 16 (5-31) U/L ALT 12 (0-31) U/L Alkaline Phosphatase 61 (39-117) U/L Albumin 4.2 (3.5-5.0) g/dL Urine 07/31/22 07/31/22 Range/Units 13:38 13:38 Urine Color Yellow Urine Appearance Clear Urine pH 7.5 (5.0-9.0) Ur Specific [place] <= 1.005 (1.005-1.025) Urine Protein Negative (Neg-Trace) mg/dL Urine Glucose (UA) Negative (Negative) mg/dL Urine Test NEGATIVE (NEGATIVE) Imaging US - abdomen: Radiologist's impression: ITS Impressions Pelvic/Transvag US 07/31/22 15:20 IMPRESSION: Complex cystic solid lesion associated with left ovary. Hemorrhagic component cannot be excluded. Gynecologic consultation is recommended. No free fluid. Abdomen/Pelvis CT 07/31/22 15:47 IMPRESSION: * Redemonstration of left adnexal soft tissue structure 4.3 cm, this correlates with a complex cystic mass seen on ultrasound done same day. As previously recommended, EMPLOYMENT LAW SPECIALIST consultation is advised, May consider further investigation with contrast-enhanced MRI clinically indicated. * Large amount of stool in the colon and rectum suggesting constipation. Assessment and Plan (1) Complex cyst of left ovary: Status: Acute Plan Discussed with Dr. Merino the following: Differential diagnosis of complex adnexal mass includes not limited to drug abuse resistance education officer, none drug abuse resistance education officer, malignant, pre malignant or benign lesions. The patient needs close follow-up as an outpatient. Signs and symptoms of ovarian rupture and/ or torsion are to be discussed with the patient, Instructions to be given to patient to come back to emergency room in case of pelvic pain, fever above 100.4, nausea and/or vomiting and schedule a close follow-up appointment in the office. I spent a total of 20 minutes reviewing the chart, communicating with the emergency room provider and documenting in the medical record. Time Spent With Patient Time: Total time managing care of this patient today ____ minutes.
== END 2022-07-31 16:39 | disposition home or self-care (01) ==
PROVIDERS: Physician Assistant; Emergency Provider Student in an Organized Health Care Education/Training Program; PCP Obstetrics & Gynecology
DX: N83.202 Unspecified ovarian cyst, left side (principal); R10.2 Pelvic and perineal pain; Z79.899 Other long term (current) drug therapy
CPT/HCPCS: 36415; 74176; 76830; 76856; 80048; 80076; 81001; 81025; 83690; 83735; 85025; 96361; 96374; 96375; 99284; J1885; J2270

== ENCOUNTER 2022-08-09 13:16 | Outpatient (REF) | payer OTHER, SELFPAY ==
[2022-08-10 06:16] LABS: CT PCR NOT DETECTED (Not Detect.); NG PCR NOT DETECTED (Not Detect.)
[2022-08-11 09:39] LABS: CA-125 14 U/mL (<35)
== END 2022-08-09 13:17 | disposition home or self-care (01) ==
LOC: HO.LAB 13:16
PROVIDERS: Visit Provider Obstetrics & Gynecology
DX: N83.292 Other ovarian cyst, left side (principal)
CPT/HCPCS: 0353U; 86304; 99212

== ENCOUNTER 2022-08-29 12:40 | Outpatient (REF) | payer OTHER, SELFPAY ==
--- NOTE | ~2022-08-29 | MR_ITS ---
EXAMINATION: MRI PELVIS WITH AND WITHOUT CONTRAST CLINICAL INFORMATION: Left-sided ovarian cyst. COMPARISON: 07/31/2022 TECHNIQUE: Multiple routine MRI sequences through the pelvis were obtained on a high-field 1.5 Liz MRI before and after the uneventful administration of 6 mL Gadavist gadolinium-based IV contrast. FINDINGS: UTERUS: Anteverted uterus has a normal configuration and measures 6.8 cm [id number] x 3 cm anterior-posterior x 4.9 cm transverse. Normal endometrial thickness, 0.5 cm. Junctional zone is normal in signal and thickness. No focal uterine mass seen. CERVIX: Normal. VAGINA: Normal; no mass seen. RIGHT OVARY: The right ovary measures 2.9 x 2.2 x 2.6 cm. There is a dominant follicle measuring 1.7 cm. No suspicious findings. LEFT OVARY: The left ovary measures 2.7 x 1.9 x 2.5 cm. Small follicles are noted. The previous dominant complex cyst has resolved, likely a prior hemorrhagic cyst. No suspicious findings. KIDNEYS: Two normally positioned kidneys are seen. No hydronephrosis. Probable simple cyst at the midpole of the right kidney. No specific follow-up recommended. BLADDER: Urinary bladder normal. PELVIC FREE FLUID: No free fluid or ascites. LYMPH NODES: No pathologically enlarged lymph nodes. OSSEOUS STRUCTURES: No acute or suspicious osseous abnormalities. MR/MR pelvis wo/w con IMPRESSION: Normal appearance of the uterus and ovaries. No suspicious findings. The previous dominant left ovarian complex cyst has resolved.
== END 2022-08-29 12:41 | disposition home or self-care (01) ==
LOC: HO.MRI 12:40
PROVIDERS: Visit Provider Obstetrics & Gynecology
DX: N83.292 Other ovarian cyst, left side (principal)
CPT/HCPCS: 72197; A9585

== ENCOUNTER → 2022-09-08 13:10 | Outpatient (BNVA) | payer OTHER, SELFPAY | PROVIDERS: Visit Provider Obstetrics & Gynecology | DX: N83.292 Other ovarian cyst, left side (principal) | CPT/HCPCS: 99212 ==

== ENCOUNTER 2022-11-09 13:37 | Emergency (ER) | payer OTHER, SELFPAY ==
--- NOTE | ~2022-11-09 | XR_ITS ---
EXAMINATION: XR CHEST CLINICAL INFORMATION: Chest pain COMPARISON: Previous chest x-ray October 2019 TECHNIQUE: Frontal view of the chest was obtained. FINDINGS: No significant abnormality is noted involving the heart, lungs, mediastinum, bony thorax or soft tissues. XR/XR chest 1V IMPRESSION: Unremarkable examination.
--- NOTE | 2022-11-09 13:39 | ECG_ITS ---
Test Reason : CHEST PAIN Blood Pressure : / mmHG Vent. Rate : 104 BPM Atrial Rate : 104 BPM P-R Int : 120 ms QRS Dur : 080 ms QT Int : 334 ms P-R-T Axes : 037 016 022 degrees QTc Int : 439 ms Sinus tachycardia Otherwise normal ECG When compared with ECG of 29-OCT-2019 14:58, No significant change was found Referred By: Donna Grossman Electronically Signed By:Bowen Patten
[2022-11-09 14:01] VITALS: BP 155/88; PULSE 102; RESP 18; TEMP 37.1; O2SAT 99; BMI 20.1
--- NOTE | 2022-11-09 14:03 | ED.CHESTPAIN ---
HPI - Chest Pain General Chief Complaint: Chest Pain <ALISSA Garcia - Last Filed: 11/09/22 14:07> Stated Complaint: chest pain/ headache <ALISSA Garcia - Last Filed: 11/09/22 14:07> Time Seen by Provider: 11/09/22 16:33 <ALISSA Garcia - Last Filed: 11/09/22 14:07> Source: patient <Mana Russell MD - Last Filed: 11/09/22 16:44> Mode of arrival: ambulatory <Mana Russell MD - Last Filed: 11/09/22 16:44> Limitations: no limitations <Mana Russell MD - Last Filed: 11/09/22 16:44> History of Present Illness HPI narrative: Patient comes to the emergency room complaining of chest pressure for 5 days. Patient states that sometimes when she started feeling the chest pressure , she becomes anxious. Patient denies coughing, no trauma, no nausea vomiting or diarrhea. <Mana Russell MD - Last Filed: 11/09/22 16:44> Related Data Home Medications: Previous Rx's Medication Instructions Recorded ketorolac 10 mg tablet 10 mg PO BID PRN pain 5 days #7 02/16/22 tabs ibuprofen 400 mg tablet 400 mg PO Q6H PRN Pain #60 tabs 07/31/22 <ALISSA Garcia - Last Filed: 11/09/22 14:07> Allergies/Adverse Reactions: Allergies Allergy/AdvReac Type Severity Reaction Status Date / Time No Known Allergies Allergy Verified 09/08/22 13:36 <ALISSA Garcia - Last Filed: 11/09/22 14:07> Review of Systems Review of Systems: Constitutional : No Weight loss, No Fever, No Chills, No Night Sweats, No Fatigue, No Malaise ENT/Mouth : No Hearing loss, No Ear Pain, No Nasal Congestion, No Sinus Pain, No Hoarseness, No sore throat, No Rhinorrhea, No Swallowing Difficulty Eyes: No Eye Pain, No Swelling, No Redness, No Foreign Body, No Discharge, No Vision Changes Cardiovascular : Complaining of 5 days of chest pressure, No Chest Pain, No SOB, No Dyspnea on Exertion, No Orthopnea, No Edema, No Palpitations Respiratory : No Cough, No Sputum, No Wheezing, No Smoke Exposure, No Dyspnea Gastrointestinal : No Nausea, No Vomiting, No Diarrhea, No Constipation, No abdominal Pain, No Hematochezia, No Melena Genitourinary : no irregular bleeding, No Dysuria, No Urinary Frequency, No Hematuria, No Urinary Incontinence, No Urgency, No Flank Pain, No Urinary Flow Changes, No Hesitancy Musculoskeletal : No joint pain, No Myalgias, No Joint Swelling Skin : No Skin Lesions, No rash Neuro : No Weakness, No Numbness, No Paresthesias, No Loss of Consciousness, No Dizziness, No Headache Psych : Complaining of anxiety, No Depression, No SI/HI/AH/VH, No Social Issues, Heme/Lymph: No Bruising, No Bleeding,No Lymphadenopathy Endocrine : No Polyuria, No Polydipsia, No Temperature Intolerance <Mana Russell MD - Last Filed: 11/09/22 16:44> [facility] Past Medical History Medical History: Medical History Tubo-ovarian abscess <ALISSA Garcia - Last Filed: 11/09/22 14:07> Family History Family History: Family History Mother Diabetes HTN (hypertension) Father HTN (hypertension) <ALISSA Garcia - Last Filed: 11/09/22 14:07> Social History Social History: Social History Household Members: None Housing: Apartment Alcohol intake: never Patient Tobacco Use Status: Never used Tobacco service: No Current occupational status: employed 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 Current occupational exposures/hazards: No Sexual orientation: Straight/Heterosexual Gender identity: Female <ALISSA Garcia - Last Filed: 11/09/22 14:07> Physical Exam Vital Signs: Vital Signs: Last Vital Signs Temp 99.1 F 11/09/22 16:34 Pulse 92 11/09/22 16:34 Resp 16 11/09/22 16:34 BP 145/88 H 11/09/22 16:34 Pulse Ox 99 11/09/22 16:34 O2 Del Method Room Air 11/09/22 16:34 BMI result Body Mass Index 20.1 <ALISSA Garcia - Last Filed: 11/09/22 14:07> Vital Signs: Last Vital Signs Temp 99.1 F 11/09/22 16:34 Pulse 92 11/09/22 16:34 Resp 16 11/09/22 16:34 BP 145/88 H 11/09/22 16:34 Pulse Ox 99 11/09/22 16:34 O2 Del Method Room Air 11/09/22 16:34 BMI result Body Mass Index 20.1 <Mana Russell MD - Last Filed: 11/09/22 16:44> Const: Other: Appearance: Alert. Oriented X3. No acute distress. Eyes: Pupils equal, round and reactive to light. ENT: Pharynx normal. Neck: Normal inspection. Neck supple. No lymph nodes noted. No crepitus CVS: Normal heart rate and rhythm. Pulses normal. Normal S1 and S2 Respiratory: No respiratory distress. Breath sounds normal. No Wheezing. No rales Abdomen: Soft and nontender. No rigidity. No distention. Skin: Skin warm and dry. Normal skin color. Normal skin turgor. Extremities: No lower extremity edema. No Lacerations. No Rash Neuro: Oriented X 3. No motor deficit. No sensory deficit. Moving all extremities. No slurred speech. CN 2 through 12 grossly intact Psych: calm, cooperative, normal affect <Mana Russlel MD - Last Filed: 11/09/22 16:44> Course Course Course Narrative: RME 42 yo yoruba speaking female with no medical history presenting with 8/10 intermittent central chest pain/pressure for five days radiating down the left arm associated with left arm weakness, headache, SOB, and nausea. Plan: EKG, CBC, CMP, troponin, chest x-ray, covid swab <ALISSA Garcia - Last Filed: 11/09/22 14:07> Medical Decision Making Medical Decision Making MDM Narrative: -patient's physical exam was normal -EKG my interpretation: Sinus tachycardia, heart rate 104, no ST segment depression or elevation, nonspecific T-wave inversion in lead 3, QTC 439 -chest x-ray my interpretation: Unremarkable -I discussed with the patient that her pain is likely secondary to anxiety. Not cardiac or pulmonary. <Mana Russell MD - Last Filed: 11/09/22 16:44> Differential Diagnosis Differential Diagnoses: The differential diagnosis associated with the presentation includes (Anxiety, musculoskeletal, pleurisy, costochondritis) <Mana Russell MD - Last Filed: 11/09/22 16:44> Lab Data [facility] Lab Attestation statement: I reviewed the patient's lab results. <Mana Russell MD - Last Filed: 11/09/22 16:44> Result Diagrams: 11/09/22 14:24 11/09/22 14:24 <ALISSA Garcia - Last Filed: 11/09/22 14:07> Labs: Lab Results 11/09/22 11/09/22 11/09/22 Range/Units 14:24 14:24 14:24 WBC 6.6 (4.8-10.8) X10*3/uL RBC 4.51 (4.20-5.50) X10*6/uL Hgb 13.5 (12.0-16.0) g/dl Hct 40.3 (37.0-47.0) % MCV 89.4 (80.0-98.0) fL MCH 29.9 (27.0-33.0) pg MCHC 33.5 (31.0-35.0) g/dl RDW 12.7 (11.0-16.0) % Plt Count 321 (160-400) X10*3/uL MPV 8.9 L (9.4-12.3) fL Immature Gran % (Auto) 0.3 (0.0-0.4) % Neut % (Auto) 61.9 (45-73) % Lymph % (Auto) 28.6 (20-40) % [place] % (Auto) 6.8 (2-11) % Eos % (Auto) 1.8 (0-4) % Baso % (Auto) 0.6 (0-2) % Lymph # (Auto) 1.9 (1.2-4.9) X10*3/uL [place] # (Auto) 0.5 (0.1-1.2) X10*3/uL Eos # (Auto) 0.1 (0.0-0.4) X10*3/uL Baso # (Auto) 0.0 (0.0-0.2) X10*3/uL Abs Immat Gran (auto) 0.02 (0.00-0.03) X10*3/uL Absolute Neuts (auto) 4.1 (2.0-8.3) x10*3/uL Absolute Nucleated RBC 0.000 (0.0-0.012) X10*3/uL Nucleated RBC % (auto) 0.0 (0.0-0.2) /100WBC Sodium 139 (135-145) mmol/L Potassium 4.0 (3.3-5.1) mmol/L Chloride 105 (96-108) mmol/L Carbon Dioxide 27 (22-29) mmol/L Anion Gap 11 L (12-20) BUN 9 (9-16) mg/dL Creatinine 0.83 (0.5-1.4) mg/dL Estim Creat Clear Calc 63.4 Estimated GFR > 60 Random Glucose 99 (60-115) mg/dL Calcium 9.9 (8.4-10.2) mg/dL Magnesium 1.9 (1.6-2.6) mg/dL Total Bilirubin 0.3 (0.0-1.0) mg/dL Direct Bilirubin 0.1 (0.0-0.5) mg/dL AST 13 (5-31) U/L ALT 11 (0-31) U/L Alkaline Phosphatase 82 (39-117) U/L Troponin I High Sens (<3.5-17.0) ng/L Total Protein 8.0 (6.5-8.0) g/dL Albumin 4.8 (3.5-5.0) g/dL COVID-19 (ALEJANDRA) Negative (Negative) COVID-19 Clin Com See Note 11/09/22 Range/Units 14:24 WBC (4.8-10.8) X10*3/uL RBC (4.20-5.50) X10*6/uL Hgb (12.0-16.0) g/dl Hct (37.0-47.0) % MCV (80.0-98.0) fL MCH (27.0-33.0) pg MCHC (31.0-35.0) g/dl RDW (11.0-16.0) % Plt Count (160-400) X10*3/uL MPV (9.4-12.3) fL Immature Gran % (Auto) (0.0-0.4) % Neut % (Auto) (45-73) % Lymph % (Auto) (20-40) % [place] % (Auto) (2-11) % Eos % (Auto) (0-4) % Baso % (Auto) (0-2) % Lymph # (Auto) (1.2-4.9) X10*3/uL [place] # (Auto) (0.1-1.2) X10*3/uL Eos # (Auto) (0.0-0.4) X10*3/uL Baso # (Auto) (0.0-0.2) X10*3/uL Abs Immat Gran (auto) (0.00-0.03) X10*3/uL Absolute Neuts (auto) (2.0-8.3) x10*3/uL Absolute Nucleated RBC (0.0-0.012) X10*3/uL Nucleated RBC % (auto) (0.0-0.2) /100WBC Sodium (135-145) mmol/L Potassium (3.3-5.1) mmol/L Chloride (96-108) mmol/L Carbon Dioxide (22-29) mmol/L Anion Gap (12-20) BUN (9-16) mg/dL Creatinine (0.5-1.4) mg/dL Estim Creat Clear Calc Estimated GFR Random Glucose (60-115) mg/dL Calcium (8.4-10.2) mg/dL Magnesium (1.6-2.6) mg/dL Total Bilirubin (0.0-1.0) mg/dL Direct Bilirubin (0.0-0.5) mg/dL AST (5-31) U/L ALT (0-31) U/L Alkaline Phosphatase (39-117) U/L Troponin I High Sens < 2.7 (<3.5-17.0) ng/L Total Protein (6.5-8.0) g/dL Albumin (3.5-5.0) g/dL COVID-19 (ALEJANDRA) (Negative) COVID-19 Clin Com <ALISSA Garcia - Last Filed: 11/09/22 14:07> Lab Results 11/09/22 11/09/22 11/09/22 Range/Units 14:24 14:24 14:24 WBC 6.6 (4.8-10.8) X10*3/uL RBC 4.51 (4.20-5.50) X10*6/uL Hgb 13.5 (12.0-16.0) g/dl Hct 40.3 (37.0-47.0) % MCV 89.4 (80.0-98.0) fL MCH 29.9 (27.0-33.0) pg MCHC 33.5 (31.0-35.0) g/dl RDW 12.7 (11.0-16.0) % Plt Count 321 (160-400) X10*3/uL MPV 8.9 L (9.4-12.3) fL Immature Gran % (Auto) 0.3 (0.0-0.4) % Neut % (Auto) 61.9 (45-73) % Lymph % (Auto) 28.6 (20-40) % [place] % (Auto) 6.8 (2-11) % Eos % (Auto) 1.8 (0-4) % Baso % (Auto) 0.6 (0-2) % Lymph # (Auto) 1.9 (1.2-4.9) X10*3/uL [place] # (Auto) 0.5 (0.1-1.2) X10*3/uL Eos # (Auto) 0.1 (0.0-0.4) X10*3/uL Baso # (Auto) 0.0 (0.0-0.2) X10*3/uL Abs Immat Gran (auto) 0.02 (0.00-0.03) X10*3/uL Absolute Neuts (auto) 4.1 (2.0-8.3) x10*3/uL Absolute Nucleated RBC 0.000 (0.0-0.012) X10*3/uL Nucleated RBC % (auto) 0.0 (0.0-0.2) /100WBC Sodium 139 (135-145) mmol/L Potassium 4.0 (3.3-5.1) mmol/L Chloride 105 (96-108) mmol/L Carbon Dioxide 27 (22-29) mmol/L Anion Gap 11 L (12-20) BUN 9 (9-16) mg/dL Creatinine 0.83 (0.5-1.4) mg/dL Estim Creat Clear Calc 63.4 Estimated GFR > 60 Random Glucose 99 (60-115) mg/dL Calcium 9.9 (8.4-10.2) mg/dL Magnesium 1.9 (1.6-2.6) mg/dL Total Bilirubin 0.3 (0.0-1.0) mg/dL Direct Bilirubin 0.1 (0.0-0.5) mg/dL AST 13 (5-31) U/L ALT 11 (0-31) U/L Alkaline Phosphatase 82 (39-117) U/L Troponin I High Sens (<3.5-17.0) ng/L Total Protein 8.0 (6.5-8.0) g/dL Albumin 4.8 (3.5-5.0) g/dL COVID-19 (ALEJANDRA) Negative (Negative) COVID-19 Clin Com See Note 11/09/22 Range/Units 14:24 WBC (4.8-10.8) X10*3/uL RBC (4.20-5.50) X10*6/uL Hgb (12.0-16.0) g/dl Hct (37.0-47.0) % MCV (80.0-98.0) fL MCH (27.0-33.0) pg MCHC (31.0-35.0) g/dl RDW (11.0-16.0) % Plt Count (160-400) X10*3/uL MPV (9.4-12.3) fL Immature Gran % (Auto) (0.0-0.4) % Neut % (Auto) (45-73) % Lymph % (Auto) (20-40) % [place] % (Auto) (2-11) % Eos % (Auto) (0-4) % Baso % (Auto) (0-2) % Lymph # (Auto) (1.2-4.9) X10*3/uL [place] # (Auto) (0.1-1.2) X10*3/uL Eos # (Auto) (0.0-0.4) X10*3/uL Baso # (Auto) (0.0-0.2) X10*3/uL Abs Immat Gran (auto) (0.00-0.03) X10*3/uL Absolute Neuts (auto) (2.0-8.3) x10*3/uL Absolute Nucleated RBC (0.0-0.012) X10*3/uL Nucleated RBC % (auto) (0.0-0.2) /100WBC Sodium (135-145) mmol/L Potassium (3.3-5.1) mmol/L Chloride (96-108) mmol/L Carbon Dioxide (22-29) mmol/L Anion Gap (12-20) BUN (9-16) mg/dL Creatinine (0.5-1.4) mg/dL Estim Creat Clear Calc Estimated GFR Random Glucose (60-115) mg/dL Calcium (8.4-10.2) mg/dL Magnesium (1.6-2.6) mg/dL Total Bilirubin (0.0-1.0) mg/dL Direct Bilirubin (0.0-0.5) mg/dL AST (5-31) U/L ALT (0-31) U/L Alkaline Phosphatase (39-117) U/L Troponin I High Sens < 2.7 (<3.5-17.0) ng/L Total Protein (6.5-8.0) g/dL Albumin (3.5-5.0) g/dL COVID-19 (ALEJANDRA) (Negative) COVID-19 Clin Com <Mana Russell MD - Last Filed: 11/09/22 16:44> Independent Interpretation I performed an independent interpretation of an: Plain X-Ray <Mana Russell MD - Last Filed: 11/09/22 16:44> Radiology Impression Discussion of test interpretation with radiology: I have reviewed the radiologist's reading. <Mana Russell MD - Last Filed: 11/09/22 16:44> Radiologist Impression: FINDINGS: No significant abnormality is noted involving the heart, lungs, mediastinum, bony thorax or soft tissues. XR/XR chest 1V IMPRESSION: Unremarkable examination. <Mana Russell MD - Last Filed: 11/09/22 16:44> Scores Heart Score History: -0- slightly suspicious <Mana Russell MD - Last Filed: 11/09/22 16:44> ECG: -0- normal <Mana Russell MD - Last Filed: 11/09/22 16:44> Age: -0- < or = 45 <Mana Russell MD - Last Filed: 11/09/22 16:44> Risk factory: -0- no risk factors known <Mana Russell MD - Last Filed: 11/09/22 16:44> Troponin: -0- < or = normal limit <Mana Russell MD - Last Filed: 11/09/22 16:44> Score: 0 <Mana Russell MD - Last Filed: 11/09/22 16:44> Risk: 1.7% <Mana Russell MD - Last Filed: 11/09/22 16:44> Discharge Plan Discharge Clinical Impression: Atypical chest pain <ALISSA Garcia - Last Filed: 11/09/22 14:07> Patient Disposition: Home, Self-Care <ALISSA Garcia - Last Filed: 11/09/22 14:07> Instructions: Chest Pain (ED), Anxiety (ED) <ALISSA Garcia - Last Filed: 11/09/22 14:07> Additional Instructions: Please follow-up with your primary care physician tomorrow. If you have any worsening or new symptoms, please return to the emergency room or call 911 <ALISSA Garcia - Last Filed: 11/09/22 14:07> Prescriptions: No Action ibuprofen 400 mg tablet 400 mg PO Q6H PRN (Reason: Pain) Qty: 60 0RF ketorolac 10 mg tablet 10 mg PO BID PRN (Reason: pain) 5 Days Qty: 7 0RF Rx Instructions: Do not use this medication with NSAIDs, only Tylenol if needed <ALISSA Garcia - Last Filed: 11/09/22 14:07>
[2022-11-09 14:34] LABS: MANUAL DIFF FLAG NO
[2022-11-09 14:44] LABS: Basophils Percent Auto 0.6 % (0-2); Eosinophils Absolute Auto 0.1 X10*3/uL (0.0-0.4); Eosinophils Percent Auto 1.8 % (0-4); Hematocrit 40.3 % (37.0-47.0); Hemoglobin 13.5 g/dl (12.0-16.0); Imm Gran Abs Auto 0.02 X10*3/uL (0.00-0.03); Imm Gran Pct Auto 0.3 % (0.0-0.4); Lymphocytes Absolute Auto 1.9 X10*3/uL (1.2-4.9); Lymphocytes Percent Auto 28.6 % (20-40); Mean Corpuscular HGB Conc 33.5 g/dl (31.0-35.0); Mean Corpuscular Hemoglobin 29.9 pg (27.0-33.0); Mean Corpuscular Volume 89.4 fL (80.0-98.0); Mean Platelet Volume 8.9 fL (9.4-12.3); Monocytes Absolute Auto 0.5 X10*3/uL (0.1-1.2); Monocytes Percent Auto 6.8 % (2-11); Neutrophils Absolute Auto 4.1 x10*3/uL (2.0-8.3); Neutrophils Percent Auto 61.9 % (45-73); Platelet Count 321 X10*3/uL (160-400); Red Blood Count 4.51 X10*6/uL (4.20-5.50); Red Cell Distribution Width 12.7 % (11.0-16.0); White Blood Count 6.6 X10*3/uL (4.8-10.8)
[2022-11-09 14:59] LABS: Alanine Aminotransferase 11 U/L (0-31); Albumin Level 4.8 g/dL (3.5-5.0); Alkaline Phosphatase 82 U/L (39-117); Anion Gap 11 (12-20); Aspartate Amino Transferase 13 U/L (5-31); Bilirubin Direct 0.1 mg/dL (0.0-0.5); Bilirubin Total 0.3 mg/dL (0.0-1.0); Blood Urea Nitrogen 9 mg/dL (9-16); Calcium 9.9 mg/dL (8.4-10.2); Carbon Dioxide 27 mmol/L (22-29); Chloride 105 mmol/L (96-108); Creatinine Clr Calc Pharmacy 63.4; Estimated Glomerular Filt Rate > 60; Glucose Random 99 mg/dL (60-115); Magnesium 1.9 mg/dL (1.6-2.6); Sodium 139 mmol/L (135-145)
[2022-11-09 15:10] LABS: COVID-19 Test Negative (Negative); IDNOW Serial# 08D9AD1C; Troponin-I High Sensitivity < 2.7 ng/L (<3.5-17.0)
[2022-11-09 16:34] VITALS: BP 145/88; PULSE 92; RESP 16; TEMP 37.3; O2SAT 99
[2022-11-09] MEDS: Acetaminophen 325 MG TABLET 650 MG PO (17:16)
== END 2022-11-09 17:20 | disposition home or self-care (01) ==
PROVIDERS: Physician Assistant; Emergency Provider Emergency Medicine
DX: R07.89 Other chest pain (principal); Z20.822 Contact with and (suspected) exposure to COVID-19; Z20.828 Contact with and (suspected) exposure to other viral communicable diseases; Z79.899 Other long term (current) drug therapy
CPT/HCPCS: 36415; 71045; 80048; 80076; 83735; 84484; 85025; 87635; 93005; 99283; 99284

== ENCOUNTER 2022-12-05 11:34 | Outpatient (REF) | payer OTHER, SELFPAY ==
[2022-12-06 11:30] LABS: CT PCR NOT DETECTED (Not Detect.); NG PCR NOT DETECTED (Not Detect.)
[2022-12-06 14:13] LABS: BV Int Neg Control Negative (Negative); BV Int Pos Control Positive (Positive)
== END 2022-12-05 11:35 | disposition home or self-care (01) ==
LOC: HO.LNP 11:34
PROVIDERS: Visit Provider Obstetrics & Gynecology
DX: Z11.3 Encounter for screening for infections with a predominantly sexual mode of transmission (principal); R10.2 Pelvic and perineal pain; R31.29 Other microscopic hematuria
CPT/HCPCS: 0353U; 81025; 87480; 87510; 87660; 99212

== ENCOUNTER 2022-12-14 14:09 | Outpatient (REF) | payer OTHER, SELFPAY ==
--- NOTE | ~2022-12-14 | CT_ITS ---
EXAMINATION: CT ABDOMEN AND PELVIS WITHOUT AND WITH CONTRAST CLINICAL INFORMATION: Microscopic hematuria. COMPARISON: CT of the abdomen and pelvis 07/31/2022. TECHNIQUE: Multidetector volumetric imaging was performed of the abdomen and pelvis before and after the IV administration of 85 mL of Omnipaque 350 intravenous contrast. Sagittal and coronal reformatted images were obtained on the technologist's workstation. This CT examination was performed using dose optimization techniques as appropriate, variously including the following: *Automated exposure control *Adjustment of mA and/or kV according to patient size (this includes techniques or standardized protocols for targeted exams where dose is matched to indication/reason for exam; i.e. extremities or head) *Use of iterative reconstruction technique DLP: 453.00 mGy-cm FINDINGS: LUNG BASES: The visualized lung bases are unremarkable. LIVER, GALLBLADDER, AND BILIARY TREE: The liver is normal in size, shape, and attenuation. No focal hepatic lesion or biliary ductal dilatation is present. The gallbladder is unremarkable with no evidence of radiopaque gallstones, gallbladder wall thickening, or obvious pericholecystic inflammatory changes. PANCREAS: Unremarkable. SPLEEN: Unremarkable. ADRENAL GLANDS: Unremarkable. KIDNEYS AND URETERS: The kidneys are normal in size, shape, and attenuation. There is a 1.5 cm benign Bosniak class I cyst in the right mid kidney laterally which requires no additional imaging or follow-up. This is unchanged from the 07/31/2022 study. No hydronephrosis or calculi is seen. No renal masses are seen. The pelvicalyceal systems appear normal without mucosal abnormality or filling defects. Both ureters appear normal. No perinephric stranding. BLADDER: Unremarkable. GASTROINTESTINAL TRACT: The small and large bowel are unremarkable. The appendix is not seen with certainty but there is no evidence of appendicitis. ABDOMINAL WALL: No significant hernia is appreciated. LYMPH NODES: Normal. VASCULAR: Unremarkable. PELVIC VISCERA: There is a benign water density 4.1 x 3.2 x 3.7 cm cyst in the right ovary. Three smaller cysts were present in the left ovary. OSSEOUS STRUCTURES: Unremarkable. CT/CT abdomen pelvis wo/w IV con IMPRESSION: 1. A cause for the patient's hematuria has not been found. 2. Incidental note made of a benign Bosniak class I right renal cyst which requires no additional imaging or follow-up. Fleischner guidelines were followed.
[2022-12-14] MEDS: iohexoL 350 MG/ML 100 ML INFUS..BTL 85 ML IV (15:52)
== END 2022-12-14 14:10 | disposition home or self-care (01) ==
LOC: HO.CT 14:09
PROVIDERS: PCP Internal Medicine; Visit Provider Obstetrics & Gynecology
DX: R31.29 Other microscopic hematuria (principal)
CPT/HCPCS: 74178; Q9967

== ENCOUNTER 2022-12-16 14:40 | Outpatient (REF) | payer OTHER, SELFPAY ==
--- NOTE | ~2022-12-16 | US_ITS ---
EXAMINATION: US PELVIS CLINICAL INFORMATION: Pelvic pain COMPARISON: CT scan 12/14/2022 TECHNIQUE: Ultrasound of the pelvis is performed using both transabdominal and transvaginal transducers along with Doppler. Transvaginal imaging is performed due to inadequate visualization transabdominally. FINDINGS: Uterus: The uterus is anteverted and measures 8.1 x 3.4 x 1.1 cm. The double wall endometrial thickness is 0.7 mm. The uterus is smooth in contour and has normal myometrial echogenicity. No visible fibroid. Adnexa: Both ovaries are visualized. There is normal color flow to the adnexa. There is no ovarian torsion. There is no pelvic ascites or fluid collection. Right ovary measures 20 mL in volume and left ovary measures 12 mL in volume. No pathologic lesion. US/US pelvic and transvaginal IMPRESSION: Mild asymmetric prominence of the right ovary most likely physiologic. No definite discrete lesion.
== END 2022-12-16 14:41 | disposition home or self-care (01) ==
LOC: HO.US 14:40
PROVIDERS: PCP Internal Medicine; Visit Provider Obstetrics & Gynecology
DX: R10.2 Pelvic and perineal pain (principal)
CPT/HCPCS: 76830; 76856

== ENCOUNTER 2023-12-04 23:13 | Emergency (ER) | payer OTHER, SELFPAY ==
--- NOTE | 2023-12-04 | ECG_ITS ---
Test Reason : CHEST PAIN Blood Pressure : / mmHG Vent. Rate : 103 BPM Atrial Rate : 103 BPM P-R Int : 120 ms QRS Dur : 078 ms QT Int : 334 ms P-R-T Axes : 048 004 004 degrees QTc Int : 437 ms Sinus tachycardia Minimal voltage criteria for LVH, may be normal variant ( R in aVL ) Nonspecific ST and T wave abnormality Borderline ECG When compared with ECG of 09-NOV-2022 13:55, No significant change was found Referred By: Generic ED Physician Electronically Signed By:GUNNAR PANDEY
--- NOTE | ~2023-12-04 | XR_ITS ---
EXAMINATION: XR CHEST CLINICAL INFORMATION: Chest pain. COMPARISON: 11/09/2022. TECHNIQUE: 2 views of the chest were obtained. FINDINGS: No significant abnormality is noted involving the heart, lungs, mediastinum, bony thorax or soft tissues. XR/XR chest 2V IMPRESSION: Unremarkable examination.
[2023-12-04 23:43] VITALS: BP 143/88; PULSE 93; RESP 20; TEMP 37.1; O2SAT 100; BMI 25.5
[2023-12-04 23:47] LABS: Hematocrit 36.7 % (37.0-47.0); Hemoglobin 12.7 g/dl (12.0-16.0); Mean Corpuscular HGB Conc 34.6 g/dl (31.0-35.0); Mean Corpuscular Hemoglobin 30.5 pg (27.0-33.0); Mean Corpuscular Volume 88.2 fL (80.0-98.0); Platelet Count 257 X10*3/uL (160-400); Red Blood Count 4.16 X10*6/uL (4.20-5.50); Red Cell Distribution Width 13.2 % (11.0-16.0); White Blood Count 7.6 X10*3/uL (4.8-10.8)
[2023-12-05] LABS: Prothrombin Time 12.2 SEC (11.1-13.3)
[2023-12-05 00:06] LABS: Alanine Aminotransferase 15 U/L (0-31); Albumin Level 4.4 g/dL (3.5-5.0); Alkaline Phosphatase 71 U/L (39-117); Anion Gap 13 (12-20); Aspartate Amino Transferase 16 U/L (5-31); Bilirubin Total 0.3 mg/dL (0.0-1.0); Blood Urea Nitrogen 14 mg/dL (9-16); Calcium 10.3 mg/dL (8.4-10.2); Carbon Dioxide 24 mmol/L (22-29); Chloride 108 mmol/L (96-108); Creatinine Clr Calc Pharmacy 70.7; Estimated Glomerular Filt Rate > 60; Glucose Random 134 mg/dL (60-115); Potassium 3.7 mmol/L (3.3-5.1); Sodium 141 mmol/L (135-145); Total Protein 8.1 g/dL (6.5-8.0)
[2023-12-05 00:14] LABS: Troponin-I High Sensitivity < 2.7 ng/L (<3.5-17.0)
--- NOTE | 2023-12-05 00:23 | ED.CHESTPAIN ---
HPI - Chest Pain General Chief Complaint: Chest Pain Stated Complaint: Chest pain Time Seen by Provider: 12/05/23 00:15 Source: patient Mode of arrival: ambulatory Limitations: no limitations History of Present Illness ED Provider: dillon GONZALEZ narrative: Patient has been having chest pain off and on for last 2 years been here before workup was negative again coming comes here for 2 days of left-sided chest pain which increases on movement and palpation no shortness a breath no fever no chills no cough Related Data Previous Rx's ?Medication ?Instructions ?Recorded ibuprofen 400 mg tablet 400 mg PO Q6H PRN Pain #60 tabs 07/31/22 metronidazole 500 mg tablet 500 mg PO BID 7 days #14 tabs 12/06/22 ibuprofen 600 mg tablet 600 mg PO Q6H PRN fever or pain 12/05/23 #30 tabs Allergies Allergy/AdvReac Type Severity Reaction Status Date / Time No Known Allergies Allergy Verified 12/04/23 23:45 Review of Systems Review of Systems: Yes all other systems are reviewed and are negative [facility] Past Medical History Medical History Tubo-ovarian abscess Family History Family History Mother Diabetes HTN (hypertension) Father HTN (hypertension) Social History Social History Household Members: None Housing: Apartment Alcohol intake: never Patient Tobacco Use Status: Never used Tobacco Advance Directives: No Advance Directives Information Provided: Yes Do you have a plan to hurt others: No Plan service: No Current occupational status: employed 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 Oriented X3. No acute distress. ENT: Pharynx normal. Oral Mucosa moist Neck: Normal inspection. Neck supple. CVS: Normal heart rate and rhythm. Pulses normal. Respiratory: No respiratory distress. Equal air entry bilateral, no wheezing/rales/rhonchi tender left 2nd intercostal space Abdomen: Soft and nontender. Bowel sounds are present, no mass palpable, no CVA tenderness no murmur/ rub Skin: Skin warm and dry. Normal skin color. Normal skin turgor. Extremities: No lower extremity edema. No calf tenderness Neuro: Oriented X 3. Medical Decision Making Differential Diagnosis Differential Diagnoses: The differential diagnosis associated with the presentation includes Lab Data MDM Lab Attestation statement: I reviewed the patient's lab results. 12/04/23 23:42 12/04/23 23:42 Labs: Lab Results 12/04/23 Range/Units 23:42 WBC 7.6 (4.8-10.8) X10*3/uL RBC 4.16 L (4.20-5.50) X10*6/uL Hgb 12.7 (12.0-16.0) g/dl Hct 36.7 L (37.0-47.0) % MCV 88.2 (80.0-98.0) fL MCH 30.5 (27.0-33.0) pg MCHC 34.6 (31.0-35.0) g/dl RDW 13.2 (11.0-16.0) % Plt Count 257 (160-400) X10*3/uL MPV 9.0 L (9.4-12.3) fL Absolute Nucleated RBC 0.000 (0.0-0.012) X10*3/uL Nucleated RBC % (auto) 0.0 (0.0-0.2) /100WBC PT 12.2 (11.1-13.3) SEC INR 1.0 (0.9-1.1) Sodium 141 (135-145) mmol/L Potassium 3.7 (3.3-5.1) mmol/L Chloride 108 (96-108) mmol/L Carbon Dioxide 24 (22-29) mmol/L Anion Gap 13 (12-20) BUN 14 (9-16) mg/dL Creatinine 0.86 (0.5-1.4) mg/dL Estim Creat Clear Calc 70.7 Estimated GFR > 60 Random Glucose 134 H (60-115) mg/dL Calcium 10.3 H (8.4-10.2) mg/dL Total Bilirubin 0.3 (0.0-1.0) mg/dL AST 16 (5-31) U/L ALT 15 (0-31) U/L Alkaline Phosphatase 71 (39-117) U/L Troponin I High Sens < 2.7 (<3.5-17.0) ng/L Total Protein 8.1 H (6.5-8.0) g/dL Albumin 4.4 (3.5-5.0) g/dL Independent Interpretation I performed an independent interpretation of an: EKG Interpretation: Sinus tachycardia ventricular rate 103 beats per minute LVH no acute STT wave changes no acute ischemia Discharge Plan Discharge Clinical Impression: Costalchondritis Patient Disposition: Home, Self-Care Instructions: Costochondritis (ED) Additional Instructions: Your pain is likely from costal cartilage inflammation Take ibuprofen for pain Follow with cad drafter Prescriptions: New ibuprofen 600 mg tablet 600 mg PO Q6H PRN (Reason: fever or pain) Qty: 30 0RF No Action metronidazole 500 mg tablet 500 mg PO BID 7 Days Qty: 14 0RF Rx Instructions: Take with food, Avoid alcohol and vinegar products ibuprofen 400 mg tablet 400 mg PO Q6H PRN (Reason: Pain) Qty: 60 0RF Referrals: Javier Rojas MD [Physician] - 2 weeks Print Language: Tajik
[2023-12-05] MEDS: Ibuprofen 600 MG TABLET PO (00:38)
[2023-12-05 00:40] VITALS: BP 143/88; PULSE 93; RESP 20; TEMP 37.1; O2SAT 100
== END 2023-12-05 00:41 | disposition home or self-care (01) ==
PROVIDERS: Emergency Provider Internal Medicine
DX: M94.0 Chondrocostal junction syndrome [Tietze] (principal)
CPT/HCPCS: 36415; 71046; 80053; 84484; 85027; 85610; 93005; 99283

== ENCOUNTER → 2023-12-04 23:14 | Outpatient (BNV) | payer OTHER, SELFPAY | PROVIDERS: Emergency Provider Internal Medicine; Visit Provider Internal Medicine | DX: R07.9 Chest pain, unspecified (principal); R00.0 Tachycardia, unspecified | CPT/HCPCS: 93010 ==

== ENCOUNTER 2024-03-29 09:23 | Outpatient (AMB) | payer OTHER, SELFPAY ==
[2024-03-29 09:41] VITALS: BP 128/60; PULSE 88; BMI 25.4
--- NOTE | 2024-03-29 09:41 | A.OFFVIS_ITS ---
Vital Signs 03/29/24 09:41 Height 5 ft 1 in Weight 134 lb 7.712 oz BMI 25.4 BP 128/60 Blood Pressure Location Lt brachial Position Sitting Pulse 88 Pulse Source Pulse Oximeter Intake Visit Reasons: [facility] ED f/u Street And Building Decorator Required: Yes Street And Building Decorator Name: ANNIE [id number] Allergies No Known Allergies Allergy (Verified 12/04/23 23:45) Medication List - Last Reconciled 03/29/24 by Wendy Pyle NP-C No Known Home Meds HPI HPI [facility] ED f/u: Details: Natasha is a 43-year-old female with no significant past medical history who was seen in the emergency room on 12/05/2023 for chest discomfort. She ruled out for ACS. She was thought to have costochondritis. She was referred to Cardiology in follow-up. Today she presents for cardiology consultation. She states that in January she was in her [place] [facility] and had some testing done for her symptoms. She brings a copy of an echocardiogram. She says she was told that no acute findings were identified. She says that she will get pains in her chest at times. She says that they come and go and when they are present it hurts more with movement and with palpation of the chest area. Denies clear symptoms brought on by walking or other physical activity. She describes having shortness of breath when she lays down however she sleeps with 1 pillow with no reported PND. No lightheadedness, presyncope, syncope. She works as a [employer] and describes herself as being active. She does not do routine exercise. She has no family history of heart disease. She says her mother and her father have hypertension. She drinks alcohol occasionally. She is a lifelong nonsmoker. 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 Current occupational exposures/hazards: No Sexual orientation: Straight/Heterosexual Gender identity: Female Female Reproductive History Menstrual Age of Menarche: 14 Review of Systems Const Denies weakness ENT Denies dizziness Card Reports chest pain, Reports chest pain at rest, Denies chest pain with activity, Denies syncope, Denies rapid heart rate, Denies pedal edema, Denies edema, Denies leg edema, Denies lightheadedness, Denies palpitations, Denies dyspnea, Denies dyspnea on exertion and Denies orthopnea Resp Denies cough, Denies dyspnea and Denies dyspnea on exertion GI Denies hematochezia and Denies change in stool character Musc Denies abnormal gait, Denies muscle cramps, Denies muscle weakness, Denies numbness, Denies radiating pain into limb and Denies tingling Neuro Denies abnormal gait, Denies dizziness, Denies syncope, Denies numbness, Denies tingling and Denies weakness Endo Denies palpitations Physical Exam Vital Signs: Last Vital Signs Pulse 88 03/29/24 09:41 BP 128/60 03/29/24 09:41 BMI result Body Mass Index 25.4 Const General: cooperative, healthy appearing, comfortable and no acute distress Orientation/consciousness: patient oriented x3 Neck Neck: Yes normal visual inspection Resp Effort & Inspection: normal respiratory effort Auscultation: clear to auscultation bilaterally, no rales, no rhonchi and no wheezes Cardio Jugular venous distension: no JVD Rate: regular rate Rhythm: regular rhythm Heart sounds: S1 normal heart sound present, S2 normal heart sound present, no murmurs and no rubs Neuro General: patient oriented x3 Extrem General: Yes normal to inspection and No no pedal edema Psych Appearance: grossly normal Mental Status: mental status grossly normal Speech and movement: Normal speech and movement present Assessment & Plan Assessment & Plan (1) Atypical chest pain: Code(s): R07.89 - Other chest pain Category: Medical Plan: ER evaluation on 12/05/2023 for chest discomfort described as on and off. She ruled out for ACS. She was thought to have costochondritis. Our record also includes an ER visit on 11/09/2022 for chest discomfort and again she ruled out for ACS. She denies having any chest discomfort at this time. When she has symptoms she describes her chest as being tender to palpation and that pain is present with movement. She has no significant cardiac risk factors. Last EKG 12/04/2023 showed sinus tachycardia with no acute ST or T-wave abnormalities, rate 103. She brings a copy of an echocardiogram from [facility] done on 02/12/2024. The report is in Vietnamese however it was translated to me by a certified air tank assembler. It indicates her EF is 69%, minimal MR and TR. No other significant abnormalities. Her chest discomfort is atypical for angina however due to recurrent symptoms will order an exercise stress test for further evaluation. Plan to discuss test results with her at that time. If test is abnormal, further testing will be ordered. If test is normal then her cardiology follow-up can be as needed. Discuss the possibility of her discomfort being chest wall in nature. Informed her stress test is normal and her symptoms reoccur that she can use ibuprofen to help relieve the discomfort. Signs and symptoms of true angina reviewed. Cardiology follow-up p.r.n. (2) Costalchondritis: Code(s): M94.0 - Chondrocostal junction syndrome [Tietze] Category: Medical Plan: As above Plan Time spent on chart review, documentation, interview and assessment Orders: Orders CA stress test Today R07.89 - Other chest pain Coding Level of Care Code New Pt Level 3 (89304) Diagnoses Atypical chest pain R07.89 Costalchondritis M94.0 Time Spent (min) 28
== END 2024-03-29 10:08 | disposition home or self-care (01) ==
PROVIDERS: Visit Provider Nurse Practitioner Family
DX: R07.89 Other chest pain (principal); M94.0 Chondrocostal junction syndrome [Tietze]
CPT/HCPCS: 99203

== ENCOUNTER → 2024-03-29 09:23 | Outpatient (BNVA) | payer OTHER, SELFPAY | PROVIDERS: Visit Provider Nurse Practitioner Family | DX: R07.89 Other chest pain (principal); M94.0 Chondrocostal junction syndrome [Tietze] | CPT/HCPCS: 99202 ==